=== PATIENT | female | born 1990 | race Caucasian/White ===

== ENCOUNTER 2017-03-14 16:57 | Emergency (ER) | payer BC ==
[2017-03-14] MEDS ORDERED: SODIUM CHLORIDE 0.9% 500 ML IV ONE (18:09)
[2017-03-14] MEDS ORDERED: ONDANSETRON 4 MG/2 ML VIAL IVP STA (18:09)
--- NOTE | 2017-03-14 18:14 | ED ---
Female Urogenital HPI - General Chief complaint: Vaginal Bleeding Stated complaint: Vaginal Bleeding Time Seen by Provider: 03/14/17 17:54 Source: patient, RN notes reviewed, old records reviewed Mode of arrival: ambulatory Limitations: no limitations - History of Present Illness Initial comments: 26-year-old female presents emergency Department chief complaint of prolonged vaginal bleeding. Patient reports that she's been having vaginal bleeding for the past 20 days. She states that prior to the vaginal bleeding she took a urine test which was faintly positive, she went to her primary care doctor and has a blood work, which showed a negative test, and that following day she started to have vaginal bleeding. She reports that She has had one living child and one . Patient reports that her ATHLETIC MONITOR is Dr. Lipscomb. She reports she's been having some lower pelvic pain and cramping. Patient denies any fever or chills, chest pain, shortness of breath. Last Menstrual Period: 01/14/17 - Related Data Home Medications Medication Instructions Recorded Confirmed Ibuprofen [Motrin] 400 mg PO Q6HR PRN 03/14/17 03/14/17 Pnv,Calcium 72/Iron/Folic Acid 1 tab PO HS 03/14/17 03/14/17 [ Plus Tablet] Allergies Allergy/AdvReac Type Severity Reaction Status Date / Time No Known Allergies Allergy Verified 03/14/17 17:57 Review of Systems ROS Statement: Those systems with pertinent positive or pertinent negative responses have been documented in the HPI. ROS Other: All systems not noted in ROS Statement are negative. Past Medical History Past Medical History: No Reported History Additional Past Medical History / Comment(s): EXERCISE INDUCED ASTHMA, IBS, GALLSTONES, INTERMITTENT ABD PAIN, INTERMITTENT BLOOD WITH STOOLS, POLYCYSTIC OVARIAN SYNDROME. History of Any Multi-Drug Resistant Organisms: None Reported Past Surgical History: Ear Surgery, Tonsillectomy Additional Past Surgical History / Comment(s): COLONOSCOPY, WISDOM TEETH REMOVEAL, TUBES GALINDO EARS X2 Past Anesthesia/Blood Transfusion Reactions: No Reported Reaction Past Psychological History: Depression Smoking Status: Never smoker Past Alcohol Use History: None Reported Past Drug Use History: None Reported - Past Family History Father Family Medical History: Hypertension, Prostate Disorder General Exam - General Exam Comments Initial Comments: 26-year-old female. No acute distress. General: Well appearing, well nourished, in no distress. Oriented x 3, normal mood and affect . Ambulating without difficulty. Skin: Good turgor, no rash, unusual bruising or prominent lesions Hair: Normal texture and distribution. HEENT: Head: Normocephalic, atraumatic, no visible or palpable masses, depressions, or scaring. Eyes: Visual acuity intact, conjunctiva clear, sclera non-icteric, EOM intact, PERRL. Ears: EACs clear, TMs translucent & cone of light visualized. hearing intact. Pharynx: Mucosa non-inflamed, no tonsillar hypertrophy or exudate Neck: Supple, without lesions, bruits, or adenopathy, thyroid non-enlarged and non-tender Heart: No cardiomegaly or thrills; regular rate and rhythm, no murmur or gallop Lungs: Clear to auscultation and percussion Abdomen: Bowel sounds normal, no tenderness, organomegaly, masses, or hernia Back: Spine normal without deformity or tenderness, no CVA tenderness Extremities: No amputations or deformities, cyanosis, edema or varicosities, peripheral pulses intact Musculoskeletal: Normal gait and station. No misalignment, asymmetry, crepitation, defects, tenderness, masses, effusions, decreased range of motion in the head, neck, spine, ribs, pelvis or extremities. Neurologic: CN 2-12 normal. Sensation to pain, touch, and proprioception normal. DTRs normal in upper and lower extremities. No pathologic reflexes. Psychiatric: Oriented X3, intact recent and remote memory, judgment and insight , normal mood and affect. Pelvic: Vagina and cervix without lesions. Uterus and adnexa/parametria nontender without masses. Patient does have vaginal bleeding. Cervix appears closed. Limitations: no limitations Course Vital Signs 03/14/17 03/14/17 03/14/17 17:12 18:39 19:33 Temperature 98.6 F 98.5 F Pulse Rate 110 H 100 100 Respiratory 18 16 17 Rate Blood Pressure 123/81 141/78 124/66 O2 Sat by Pulse 98 97 96 Oximetry 03/14/17 20:16 Temperature 98.7 F Pulse Rate 99 Respiratory 18 Rate Blood Pressure 132/65 O2 Sat by Pulse 98 Oximetry Medical Decision Making - Medical Decision Making 26-year-old female presents emergency Department chief complaint of increased vaginal bleeding for 20 days. She had a faint positive test personally 3 weeks ago. She had a negative blood test on the same day that the menstrual bleeding started. At this time patient's hemoglobin is stable, her hCG serum is less than 2.4, urine hCG is negative. Urinalysis is negative for any signs of infection. Ultrasound does show positive left sided ovarian cyst. No other uterine abnormalities. Discussed the patient with his menorrhagia, she needs to follow-up with her ATHLETIC MONITOR. Patient was having appointment with her ATHLETIC MONITOR, Dr. Davey March 27. Discussed that she has any symptoms like shortness of breath, lightheadedness or dizziness patient should return to emergency department for further evaluation. Discussed close follow-up with her primary care provider in the interim this before seeing her ATHLETIC MONITOR trying to see her ATHLETIC MONITOR sooner. Patient understands treatment plan will comply. Return parameters were discussed. - Lab Data Result diagrams: 03/14/17 18:22 03/14/17 18:22 Lab Results 03/14/17 03/14/17 03/14/17 Range/Units 18:22 18:22 18:22 WBC 4.9 (3.8-10.6) k/uL RBC 4.73 (3.80-5.40) m/uL Hgb 14.1 (11.4-16.0) gm/dL Hct 42.3 (34.0-46.0) % MCV 89.5 (80.0-100.0) fL MCH 29.7 (25.0-35.0) pg MCHC 33.2 (31.0-37.0) g/dL RDW 12.4 (11.5-15.5) % Plt Count 204 (150-450) k/uL Neutrophils % 52 % Lymphocytes % 33 % Monocytes % 5 % Eosinophils % 5 % Basophils % 1 % Neutrophils # 2.5 (1.3-7.7) k/uL Lymphocytes # 1.6 (1.0-4.8) k/uL Monocytes # 0.3 (0-1.0) k/uL Eosinophils # 0.3 (0-0.7) k/uL Basophils # 0.0 (0-0.2) k/uL PT (9.0-12.0) sec INR (<1.2) APTT (22.0-30.0) sec Sodium 139 (137-145) mmol/L Potassium 3.8 (3.5-5.1) mmol/L Chloride 104 (98-107) mmol/L Carbon Dioxide 23 (22-30) mmol/L Anion Gap 12 mmol/L BUN 8 (7-17) mg/dL Creatinine 0.72 (0.52-1.04) mg/dL Est GFR (MDRD) Af Amer >60 (>60 ml/min/1.73 sqM) Est GFR (MDRD) Non-Af >60 (>60 ml/min/1.73 sqM) Glucose 79 (74-99) mg/dL Calcium 9.1 (8.4-10.2) mg/dL Total Bilirubin 0.4 (0.2-1.3) mg/dL AST 62 H (14-36) U/L ALT 63 H (9-52) U/L Alkaline Phosphatase 71 (38-126) U/L Total Protein 7.2 (6.3-8.2) g/dL Albumin 4.5 (3.5-5.0) g/dL HCG, Quant <2.4 mIU/mL Urine HCG, Qual Not Detected (Not Detectd) Trichomonas Ag (Rapid) (Negative) Blood Type Blood Type Recheck Antibody Screen Spec Expiration Date 03/14/17 03/14/17 03/14/17 Range/Units 18:22 18:22 18:22 WBC (3.8-10.6) k/uL RBC (3.80-5.40) m/uL Hgb (11.4-16.0) gm/dL Hct (34.0-46.0) % MCV (80.0-100.0) fL MCH (25.0-35.0) pg MCHC (31.0-37.0) g/dL RDW (11.5-15.5) % Plt Count (150-450) k/uL Neutrophils % % Lymphocytes % % Monocytes % % Eosinophils % % Basophils % % Neutrophils # (1.3-7.7) k/uL Lymphocytes # (1.0-4.8) k/uL Monocytes # (0-1.0) k/uL Eosinophils # (0-0.7) k/uL Basophils # (0-0.2) k/uL PT 10.1 (9.0-12.0) sec INR 1.0 (<1.2) APTT 23.9 (22.0-30.0) sec Sodium (137-145) mmol/L Potassium (3.5-5.1) mmol/L Chloride (98-107) mmol/L Carbon Dioxide (22-30) mmol/L Anion Gap mmol/L BUN (7-17) mg/dL Creatinine (0.52-1.04) mg/dL Est GFR (MDRD) Af Amer (>60 ml/min/1.73 sqM) Est GFR (MDRD) Non-Af (>60 ml/min/1.73 sqM) Glucose (74-99) mg/dL Calcium (8.4-10.2) mg/dL Total Bilirubin (0.2-1.3) mg/dL AST (14-36) U/L ALT (9-52) U/L Alkaline Phosphatase (38-126) U/L Total Protein (6.3-8.2) g/dL Albumin (3.5-5.0) g/dL HCG, Quant mIU/mL Urine HCG, Qual (Not Detectd) Trichomonas Ag (Rapid) Negative (Negative) Blood Type O Positive Blood Type Recheck No Antibody Screen NEGATIVE Spec Expiration Date 03/17/2017 - 2321 - Radiology Data Radiology results: report reviewed Transvaginal ultrasound shows a large left ovarian cyst, no evidence of ovarian torsion, normal endometrium. The endometrial cyst measures approximately 3.9 x 2.4 x 3.1 cm. Disposition Clinical Impression: Menorrhagia with irregular cycle Disposition: HOME SELF-CARE Condition: Good Instructions: Menorrhagia (ED) Additional Instructions: Advised to a follow-up with ATHLETIC MONITOR and primary care provider. Patient should return to emergency department if any alarming signs or symptoms occur. Referrals: Ld Wan MD [Primary Care Provider] - 1-2 days Litzy Colón MD [STAFF PHYSICIAN] - 1-2 days Time of Disposition: 20:08
[2017-03-14 19:23] LABS: Basophils % (A) 1 %; CH 30.4; CHCM 34.2; Eosinophils # (A) 0.3 k/uL (0-0.7); Eosinophils % (A) 5 %; HCT 42.3 % (34.0-46.0); HDW 2.71; HGB 14.1 gm/dL (11.4-16.0); Luc # (Auto) 0.18; Luc % (Auto) 4; Lymphocytes # (A) 1.6 k/uL (1.0-4.8); Lymphocytes % (A) 33 %; MCH 29.7 pg (25.0-35.0); MCHC 33.2 g/dL (31.0-37.0); MCV 89.5 fL (80.0-100.0); Mean Platelet Volume 7.3; Monocytes # (A) 0.3 k/uL (0-1.0); Monocytes % (A) 5 %; Neutrophils # (A) 2.5 k/uL (1.3-7.7); Neutrophils % (A) 52 %; RBC 4.73 m/uL (3.80-5.40); RDW 12.4 % (11.5-15.5); WBC 4.9 k/uL (3.8-10.6)
--- NOTE | 2017-03-14 19:23 | US ---
EXAMINATION TYPE: US transvaginal DATE OF EXAM: 03/14/2017 COMPARISON: NONE CLINICAL HISTORY: Pain. Bleeding since 02/22/2017 TECHNIQUE: Transvaginal (TV) Date of LMP: 02/22/2017 EXAM MEASUREMENTS: Uterus: 6.8 x 5.6 x 5.1 cm Endometrial Stripe: 0.4 cm Right Ovary: 2.8 x 1.4 x 2.8 cm Left Ovary: 4.5 x 2.3 x 3.4 cm Fluid visualized in cervical canal anechoic area with internal echoes left ovary measuring 3.9 x 2.4 x 3.1cm 1. Uterus: Retroverted 2. Endometrium: appears wnl 3. Right Ovary: follicles visualized 4. Left Ovary: anechoic area with internal echoes measuring 3.9 x 2.4 x 3.1cm Spectral, color and waveform doppler imaging shows good arterial and venous flow within the ovaries ; there is no evidence for ovarian torsion. 5. Bilateral Adnexa: wnl 6. Posterior cul-de-sac: wnl IMPRESSION: Large left ovarian cyst. No evidence of ovarian torsion. Normal endometrium.
[2017-03-14 19:26] LABS: Partial Thromboplastin Time 23.9 sec (22.0-30.0); Prothrombin Time 10.1 sec (9.0-12.0)
[2017-03-14 19:28] LABS: ALT 63 U/L (9-52); AST 62 U/L (14-36); Alkaline Phosphatase 71 U/L (38-126); Anion Gap 12 mmol/L; Blood Urea Nitrogen 8 mg/dL (7-17); Calcium 9.1 mg/dL (8.4-10.2); Carbon Dioxide 23 mmol/L (22-30); Chloride 104 mmol/L (98-107); Glucose 79 mg/dL (74-99); Non-African American GFR(MDRD) >60 (>60 ml/min/1.73 sqM); Potassium 3.8 mmol/L (3.5-5.1); Sodium 139 mmol/L (137-145); Total Bilirubin 0.4 mg/dL (0.2-1.3); Total Protein 7.2 g/dL (6.3-8.2)
[2017-03-14 20:17] VITALS: BP 132/65; PULSE 99; RESP 18; TEMP 98.7
== END 2017-03-14 20:29 | disposition home or self-care (01) ==
LOC: EC 16:57
DX: N92.1 Excessive and frequent menstruation with irregular cycle (principal); N83.202 Unspecified ovarian cyst, left side; Z32.02 Encounter for pregnancy test, result negative; Z79.899 Other long term (current) drug therapy
CPT/HCPCS: 36415; 86900; 86901; 80053; 87591; 87491; 85025; 85610; 85730; 86850; 81025; 84702; 87808; 87070; 87205; 93975; 76830; 99284; 96374; 96361 ×2; J2405

== ENCOUNTER 2017-04-30 16:51 | Emergency (ER) | payer BC ==
[2017-04-30] MEDS ORDERED: ACETAMINOPHEN TAB 325 MG TAB PO STA (17:02)
--- NOTE | 2017-04-30 18:10 | ED ---
General Adult HPI - General Chief complaint: ENT Stated complaint: ENT, Fever Time Seen by Provider: 04/30/17 16:57 Source: patient Mode of arrival: ambulatory Limitations: no limitations - History of Present Illness Initial comments: 27 year-old female patient presents to the emergency department today for evaluation of nasal congestion, sore throat, and fevers. Patient states that symptoms started on Saturday. States that her sore throat has improved somewhat however her nasal congestion is persistent. She states that she is unable to breathe through her nose at all. States she does have a mild cough occasionally but feels it is more due to throat irritation. She states she is been taking Tylenol Cold and sinus without much relief of symptoms. She is unsure how high her fevers have been. She states she is eating and drinking without difficulty. She denies any vomiting or diarrhea. Patient denies any recent rash, shortness breath, chest pain, abdominal pain, constipation, back pain, numbness, tingling, dizziness, weakness, hematuria, dysuria, urinary urgency, urinary frequency, headache, visual changes, or any other complaints. - Related Data Home Medications Medication Instructions Recorded Confirmed No Known Home Medications [No 04/30/17 04/30/17 Known Home Medications] Allergies Allergy/AdvReac Type Severity Reaction Status Date / Time No Known Allergies Allergy Verified 04/30/17 16:58 Review of Systems ROS Statement: Those systems with pertinent positive or pertinent negative responses have been documented in the HPI. ROS Other: All systems not noted in ROS Statement are negative. Past Medical History Past Medical History: No Reported History Additional Past Medical History / Comment(s): EXERCISE INDUCED ASTHMA, IBS, GALLSTONES, INTERMITTENT ABD PAIN, INTERMITTENT BLOOD WITH STOOLS, POLYCYSTIC OVARIAN SYNDROME. History of Any Multi-Drug Resistant Organisms: None Reported Past Surgical History: Ear Surgery, Tonsillectomy Additional Past Surgical History / Comment(s): COLONOSCOPY, WISDOM TEETH REMOVEAL, TUBES GALINDO EARS X2 Past Anesthesia/Blood Transfusion Reactions: No Reported Reaction Past Psychological History: Depression Smoking Status: Never smoker Past Alcohol Use History: None Reported Past Drug Use History: None Reported - Past Family History Father Family Medical History: Hypertension, Prostate Disorder General Exam Limitations: no limitations General appearance: alert, in no apparent distress, other (This is a well- developed, well-nourished adult female patient in no acute distress. Vital signs upon presentation are temperature 100.5F, pulse 120, respirations 20, blood pressure 124/78, pulse ox 98% on room air.) Eye exam: Present: normal appearance, PERRL, EOMI. Absent: scleral icterus, conjunctival injection, periorbital swelling ENT exam: Present: normal exam, mucous membranes moist, TM's normal bilaterally , other (Patient does have chapping around the nostrils). Absent: normal oropharynx (Pharyngeal erythema, no tonsillar hypertrophy, no tonsillar exudate) Neck exam: Present: normal inspection. Absent: tenderness, meningismus, lymphadenopathy Respiratory exam: Present: normal lung sounds bilaterally. Absent: respiratory distress, wheezes, rales, rhonchi, stridor Cardiovascular Exam: Present: regular rate, normal rhythm, normal heart sounds. Absent: systolic murmur, diastolic murmur, rubs, gallop, clicks GI/Abdominal exam: Present: soft, normal bowel sounds. Absent: distended, tenderness, guarding, rebound, rigid Neurological exam: Present: alert, oriented X3, CN II-XII intact Psychiatric exam: Present: normal affect, normal mood Skin exam: Present: warm, dry, intact, normal color. Absent: rash Course Vital Signs 04/30/17 04/30/17 16:56 18:14 Temperature 100.5 F H 98.6 F Pulse Rate 120 H 98 Respiratory 20 18 Rate Blood Pressure 124/78 131/78 O2 Sat by Pulse 98 98 Oximetry Medical Decision Making - Medical Decision Making 27 year-old male patient presented to the emergency department today for evaluation of nasal congestion, sore throat, and fevers 4 days. Physical examination did reveal some chapping around the nostrils and pharyngeal erythema. Patient had no tonsillar exudate or lymphadenopathy. Lungs are clear to auscultation with good air movement. Influenza and strep testing were negative. I did discuss findings with patient and informed her she most likely has a viral upper respiratory infection. She is educated regarding symptom management. She is instructed to obtain [id number] nasal decongestants. She is instructed to follow-up with her primary care physician for recheck in 1- 2 days. She is instructed to return here immediately for any new, worsening, or concerning symptoms. She verbalizes understanding and agrees with this plan. - Lab Data Lab Results 01/16/18 01/16/18 Range/Units 17:11 17:11 Influenza Type A RNA Not Detected (Not Detectd) Influenza Type B (PCR) Not Detected (Not Detectd) Group A Strep Rapid Negative (Negative) Disposition Clinical Impression: Viral upper respiratory illness Disposition: HOME SELF-CARE Condition: Good Instructions: Upper Respiratory Infection (ED) Additional Instructions: Drink lots of fluids. Gargle with warm salt water and drink warm teas to help soothe your throat. Use [id number] nasal decongestants like a Claritin-D , Zyrtec-D, or Sudafed. Follow-up with her primary care physician for recheck in 1-2 days. Return here immediately for any new, worsening, or concerning symptoms. Referrals: Ld Wan MD [Primary Care Provider] - 1-2 days Time of Disposition: 18:10
[2017-04-30 18:15] VITALS: BP 131/78; PULSE 98; RESP 18; TEMP 98.6
== END 2017-04-30 18:15 | disposition home or self-care (01) ==
LOC: EC 16:51
DX: J06.9 Acute upper respiratory infection, unspecified (principal)
CPT/HCPCS: 87081; 87430; 87502; 99283

== ENCOUNTER → 2017-08-22 | Outpatient (CLI) | payer OTHER ==
[2017-08-22 10:21] LABS: HCT 39.9 % (34.0-46.0); HGB 13.9 gm/dL (11.4-16.0); MCH 30.4 pg (25.0-35.0); MCHC 34.9 g/dL (31.0-37.0); MCV 87.1 fL (80.0-100.0); Mean Platelet Volume 6.8; Platelet Count 198 k/uL (150-450); RBC 4.58 m/uL (3.80-5.40); RDW 12.8 % (11.5-15.5); WBC 6.5 k/uL (3.8-10.6)
[2017-08-22 10:35] LABS: ALT 25 U/L (9-52); AST 23 U/L (14-36); Albumin 4.3 g/dL (3.5-5.0); Alkaline Phosphatase 65 U/L (38-126); Anion Gap 13 mmol/L; Blood Urea Nitrogen 11 mg/dL (7-17); Calcium 9.3 mg/dL (8.4-10.2); Carbon Dioxide 25 mmol/L (22-30); Chloride 105 mmol/L (98-107); Cholesterol 158 mg/dL (<200); Glucose 90 mg/dL (74-99); HDL Cholesterol 50 mg/dL (40-60); LDL Cholesterol,Calculated 37 mg/dL (0-99); Potassium 4.7 mmol/L (3.5-5.1); Sodium 143 mmol/L (137-145); Total Bilirubin 0.5 mg/dL (0.2-1.3); Total Protein 6.7 g/dL (6.3-8.2); Triglycerides 357 mg/dL (<150)
== END | disposition home or self-care (01) ==
LOC: LABWHC1 09:20
PROVIDERS: ATTEND Family Medicine
DX: R63.5 Abnormal weight gain (principal); E28.2 Polycystic ovarian syndrome
CPT/HCPCS: 36415; 80053; 80061; 82306; 82533; 84443; 84481; 85027

== ENCOUNTER → 2017-11-05 | Outpatient (CLI) | payer OTHER ==
[2017-11-05 16:06] LABS: DHEA Sulfate 252.7 ug/dL (26.0-430.0)
== END | disposition home or self-care (01) ==
LOC: LABWHC1 09:01
PROVIDERS: ATTEND Family Medicine
DX: E28.2 Polycystic ovarian syndrome (principal); N92.6 Irregular menstruation, unspecified; L68.0 Hirsutism; E66.9 Obesity, unspecified
CPT/HCPCS: 36415; 82627; 83001; 83002; 84402; 84403

== ENCOUNTER → 2018-01-02 | Outpatient (CLI) | payer OTHER | END | disposition home or self-care (01) | LOC: LABWHC1 13:28 | PROVIDERS: ATTEND Obstetrics & Gynecology | DX: O20.0 Threatened abortion (principal); Z3A.00 Weeks of gestation of pregnancy not specified | CPT/HCPCS: 36415; 84702 ==

== ENCOUNTER → 2018-01-04 | Outpatient (CLI) | payer OTHER | END | disposition home or self-care (01) | LOC: LABWHC1 11:26 | PROVIDERS: ATTEND Obstetrics & Gynecology | DX: O20.0 Threatened abortion (principal) | CPT/HCPCS: 36415; 84702 ==

== ENCOUNTER 2018-03-28 12:21 | Emergency (ER) | payer OTHER ==
[2018-03-28 12:32] VITALS: RESP 18
[2018-03-28] MEDS ORDERED: SODIUM CHLORIDE 0.9% 1,000 ML IV STA (12:51)
--- NOTE | 2018-03-28 13:00 | ED ---
General Adult HPI - General Chief complaint: Abdominal Pain Stated complaint: Abd Pain-19 wks Time Seen by Provider: 03/28/18 12:36 Source: patient, RN notes reviewed Mode of arrival: ambulatory - History of Present Illness Initial comments: Patient 27-year-old female presented to the emergency room today with chief complaint of lower pelvis pain over the last month. She admits that she is 18 weeks . She states she has been waiting to follow-up the [facility]. Patient does admit that she has not had any bleeding or discharge. 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 She denies any other complaints or symptoms at this time. She states she's been using Tylenol with some relief. Patient denies any recent fever, chills, shortness of breath, chest pain, back pain, nausea or vomiting, numbness or tingling, dysuria or hematuria, constipation or diarrhea, headaches or visual changes, or any other complaints. - Related Data Home Medications Medication Instructions Recorded Confirmed Acetaminophen [Tylenol] 325 mg PO Q8H 03/28/18 03/28/18 Folic Acid 1 mg PO DAILY 03/28/18 03/28/18 [id number] Acid 1 cap PO DAILY 03/28/18 03/28/18 [-U Capsule (formulary)] buPROPion XL [Wellbutrin XL] 150 mg PO DAILY 03/28/18 03/28/18 metFORMIN HCL [Glucophage] 500 mg PO DAILY 03/28/18 03/28/18 Allergies Allergy/AdvReac Type Severity Reaction Status Date / Time No Known Allergies Allergy Verified 03/28/18 13:10 Review of Systems ROS Statement: Those systems with pertinent positive or pertinent negative responses have been documented in the HPI. ROS Other: All systems not noted in ROS Statement are negative. Past Medical History Past Medical History: No Reported History Additional Past Medical History / Comment(s): EXERCISE INDUCED ASTHMA, IBS, GALLSTONES, INTERMITTENT ABD PAIN, INTERMITTENT BLOOD WITH STOOLS, POLYCYSTIC OVARIAN SYNDROME. History of Any Multi-Drug Resistant Organisms: None Reported Past Surgical History: Cholecystectomy, Ear Surgery, Tonsillectomy Additional Past Surgical History / Comment(s): COLONOSCOPY, WISDOM TEETH REMOVEAL, TUBES GALINDO EARS X2 Past Anesthesia/Blood Transfusion Reactions: No Reported Reaction Past Psychological History: Depression Smoking Status: Never smoker Past Alcohol Use History: None Reported Past Drug Use History: None Reported - Past Family History Father Family Medical History: Hypertension, Prostate Disorder General Exam - General Exam Comments Initial Comments: \General: The patient is awake and alert, in no distress, and does not appear acutely ill. Eye: Pupils are equal, round and reactive to light, extra-ocular movements are intact. No nystagmus. There is normal conjunctiva bilaterally. No signs of icterus. Ears, nose, mouth and throat: There are moist mucous membranes and no oral lesions. Neck: The neck is supple, there is no tenderness or JVD. Cardiovascular: There is a regular rate and rhythm. No murmur, rub or gallop is appreciated. Respiratory: Lungs are clear to auscultation, respirations are non-labored, breath sounds are equal. No wheezes, stridor, rales, or rhonchi. Gastrointestinal: Admits soft on palpation. Mild tenderness both left and right lower quadrants. No rebound, guarding or CVA tenderness. Musculoskeletal: Normal ROM, no tenderness. Strength 5/5. Sensation intact. Pulses equal bilaterally 2+. Neurological: A&O x 3. CN II-XII intact, There are no obvious motor or sensory deficits. Coordination appears grossly intact. Speech is normal. Skin: Skin is warm and dry and no rashes or lesions are noted. Psychiatric: Cooperative, appropriate mood & affect, normal judgment. Course Vital Signs 03/28/18 12:29 Temperature 98.1 F Pulse Rate 91 Respiratory 18 Rate Blood Pressure 112/76 O2 Sat by Pulse 98 Oximetry Medical Decision Making - Medical Decision Making Patient 27-year-old female presenting for increased lower abdominal pain. 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 Patient states that the pain has been worse with movement. She states she's tried to follow-up with her OB/ [employer]. Patient denies any vaginal bleeding or discharge. heart tones were obtained here in the emergency room and rhythm 150s. Patient labs been reviewed. No sign of infection. Vitals are stable. Patient's pain reproducible with movement here in the emergency room and does appear to be musculoskeletal. Was discussed with patient about ultrasound she has had a previous ultrasound in this one month ago. She declined ultrasound today stating that they were able to find heart tones. Patient has been taking Tylenol. Was offered Tylenol here the emergency room if she has declined currently. She states she will wait until she gets home. At this time patient will be discharged home to follow-up with the [facility]. There is advised return if any symptoms increase or worsen or fail concerns. - Lab Data Result diagrams: 03/28/18 12:53 03/28/18 12:53 Lab Results 03/28/18 03/28/18 03/28/18 Range/Units 12:53 12:53 12:53 WBC 8.7 (3.8-10.6) k/uL RBC 3.90 (3.80-5.40) m/uL Hgb 12.3 (11.4-16.0) gm/dL Hct 35.2 (34.0-46.0) % MCV 90.2 (80.0-100.0) fL MCH 31.4 (25.0-35.0) pg MCHC 34.9 (31.0-37.0) g/dL RDW 13.4 (11.5-15.5) % Plt Count 175 (150-450) k/uL Neutrophils % 75 % Lymphocytes % 18 % Monocytes % 3 % Eosinophils % 2 % Basophils % 0 % Neutrophils # 6.5 (1.3-7.7) k/uL Lymphocytes # 1.5 (1.0-4.8) k/uL Monocytes # 0.3 (0-1.0) k/uL Eosinophils # 0.2 (0-0.7) k/uL Basophils # 0.0 (0-0.2) k/uL Sodium 136 L (137-145) mmol/L Potassium 4.3 (3.5-5.1) mmol/L Chloride 107 (98-107) mmol/L Carbon Dioxide 20 L (22-30) mmol/L Anion Gap 9 mmol/L BUN 6 L (7-17) mg/dL Creatinine 0.60 (0.52-1.04) mg/dL Est GFR (CKD-EPI)AfAm >90 (>60 ml/min/1.73 sqM) Est GFR (CKD-EPI)NonAf >90 (>60 ml/min/1.73 sqM) Glucose 85 (74-99) mg/dL Calcium 9.3 (8.4-10.2) mg/dL Total Bilirubin 0.5 (0.2-1.3) mg/dL AST 17 (14-36) U/L ALT 34 (9-52) U/L Alkaline Phosphatase 45 (38-126) U/L Total Protein 6.1 L (6.3-8.2) g/dL Albumin 3.6 (3.5-5.0) g/dL Amylase 56 (30-110) U/L Lipase 72 (23-300) U/L Urine Color Yellow Urine Appearance Cloudy H (Clear) Urine pH 5.5 (5.0-8.0) Ur Specific [place] 1.015 (1.001-1.035) Urine Protein Negative (Negative) Urine Glucose (UA) Negative (Negative) Urine Ketones Negative (Negative) Urine Blood Negative (Negative) Urine Nitrite Negative (Negative) Urine Bilirubin Negative (Negative) Urine Urobilinogen <2.0 (<2.0) mg/dL Ur Leukocyte Esterase Small H (Negative) Urine RBC 11 H (0-5) /hpf Urine WBC 3 (0-5) /hpf Ur Squamous Epith Cells 3 (0-4) /hpf Urine Bacteria Occasional H (None) /hpf Urine Mucus Rare H (None) /hpf Disposition Clinical Impression: Abdominal pain in Disposition: HOME SELF-CARE Condition: Good Instructions: Abdominal Pain in (ED) Additional Instructions: Result the [facility] as discussed. Please use Tylenol for pain. Please return here to emergency room if any symptoms increase or worsen or for any other concerns. Is patient prescribed a controlled substance at d/c from ED?: No Referrals: None,Stated [Primary Care Provider] - 1-2 days Litzy Colón MD [STAFF PHYSICIAN] - 1-2 days Time of Disposition: 14:32
[2018-03-28 13:09] LABS: Basophils % (A) 0 %; Eosinophils # (A) 0.2 k/uL (0-0.7); Eosinophils % (A) 2 %; HCT 35.2 % (34.0-46.0); HGB 12.3 gm/dL (11.4-16.0); Lymphocytes # (A) 1.5 k/uL (1.0-4.8); Lymphocytes % (A) 18 %; MCH 31.4 pg (25.0-35.0); MCHC 34.9 g/dL (31.0-37.0); MCV 90.2 fL (80.0-100.0); Mean Platelet Volume 7.6; Monocytes # (A) 0.3 k/uL (0-1.0); Monocytes % (A) 3 %; Neutrophils # (A) 6.5 k/uL (1.3-7.7); Neutrophils % (A) 75 %; Platelet Count 175 k/uL (150-450); RDW 13.4 % (11.5-15.5); WBC 8.7 k/uL (3.8-10.6)
[2018-03-28 13:19] LABS: ALT 34 U/L (9-52); AST 17 U/L (14-36); Albumin 3.6 g/dL (3.5-5.0); Alkaline Phosphatase 45 U/L (38-126); Amylase 56 U/L (30-110); Anion Gap 9 mmol/L; Blood Urea Nitrogen 6 mg/dL (7-17); Calcium 9.3 mg/dL (8.4-10.2); Carbon Dioxide 20 mmol/L (22-30); Chloride 107 mmol/L (98-107); Glucose 85 mg/dL (74-99); Lipase 72 U/L (23-300); Potassium 4.3 mmol/L (3.5-5.1); Sodium 136 mmol/L (137-145); Total Bilirubin 0.5 mg/dL (0.2-1.3); Total Protein 6.1 g/dL (6.3-8.2)
[2018-03-28 13:37] LABS: Appearance,Urine Cloudy (Clear); Bacteria,Urine Occasional /hpf; Bilirubin,Urine Negative (Negative); Blood,Urine Negative (Negative); Color,Urine Yellow; Glucose,Urine (UA) Negative (Negative); Ketones,Urine Negative (Negative); Leukocyte Esterase,Urine Small (Negative); Mucus,Urine Rare /hpf; Nitrite,Urine Negative (Negative); PH, Urine 5.5 (5.0-8.0); Protein,Urine Negative (Negative); RBC,Urine 11 /hpf (0-5); Specific Gravity,Urine 1.015 (1.001-1.035); Squamous Epithelial Cell,Urine 3 /hpf (0-4); Urobilinogen,Urine <2.0 mg/dL (<2.0)
[2018-03-28 14:45] VITALS: BP 137/73; PULSE 94; TEMP 98.5
== END 2018-03-28 14:46 | disposition home or self-care (01) ==
LOC: EC 12:21
DX: O26.892 Other specified pregnancy related conditions, second trimester (principal); R10.9 Unspecified abdominal pain; O99.342 Other mental disorders complicating pregnancy, second trimester; F32.9 Major depressive disorder, single episode, unspecified; Z3A.19 19 weeks gestation of pregnancy; Z79.84 Long term (current) use of oral hypoglycemic drugs; Z79.899 Other long term (current) drug therapy
CPT/HCPCS: 36415; 80053; 81001; 82150; 83690; 85025; 96360; 96361; 99284

== ENCOUNTER 2018-04-18 14:14 | Emergency (ER) | payer OTHER ==
[2018-04-18 14:21] VITALS: BP 126/74; PULSE 110; RESP 18; TEMP 98
[2018-04-18] MEDS ORDERED: ONDANSETRON ODT 4 MG TAB PO STA (14:57)
--- NOTE | 2018-04-18 15:18 | XR ---
EXAMINATION TYPE: XR chest 2V DATE OF EXAM: 04/18/2018 COMPARISON: 04/07/2013 INDICATION: Cough, pain TECHNIQUE: Frontal and lateral views of the chest are obtained. Patient was carefully shielded for t he exam. FINDINGS: The heart size is normal. The pulmonary vasculature is normal. The lungs are clear. IMPRESSION: 1. No acute pulmonary process.
[2018-04-18] MEDS ORDERED: cefTRIAXone 1,000 MG VIAL (IM USE) IM STA (15:22)
--- NOTE | 2018-04-18 15:22 | ED ---
ENT HPI - General Chief complaint: ENT Stated complaint: Face pain, poss sinus infection. 21 Weeks preg Time Seen by Provider: 04/18/18 14:33 Source: patient, RN notes reviewed Mode of arrival: ambulatory Limitations: no limitations - History of Present Illness Initial comments: 27 year old female presents emergency department to complaint of right upper dental pain. Patient states that the cough and chest congestion. Patient states she's had associated nausea secondary to and cold. Patient states that she vomited today. Patient has no abdominal complaints including vaginal bleeding or vaginal discharge. Patient is 21 weeks . Patient is currently on antibiotics. Patient denies any dysuria hematuria states that she has known fillings in the right upper. No sore throat no difficulty swallowing. - Related Data Home Medications Medication Instructions Recorded Confirmed Acetaminophen [Tylenol] 325 mg PO Q8H 03/28/18 03/28/18 Folic Acid 1 mg PO DAILY 03/28/18 03/28/18 Rnw-Mqmo-Cwmag Acid 1 cap PO DAILY 03/28/18 03/28/18 [-U Capsule (formulary)] buPROPion XL [Wellbutrin XL] 150 mg PO DAILY 03/28/18 03/28/18 metFORMIN HCL [Glucophage] 500 mg PO DAILY 03/28/18 03/28/18 Allergies Allergy/AdvReac Type Severity Reaction Status Date / Time No Known Allergies Allergy Verified 04/18/18 14:21 Review of Systems ROS Statement: Those systems with pertinent positive or pertinent negative responses have been documented in the HPI. ROS Other: All systems not noted in ROS Statement are negative. Past Medical History Past Medical History: No Reported History Additional Past Medical History / Comment(s): EXERCISE INDUCED ASTHMA, IBS, GALLSTONES, INTERMITTENT ABD PAIN, INTERMITTENT BLOOD WITH STOOLS, POLYCYSTIC OVARIAN SYNDROME. History of Any Multi-Drug Resistant Organisms: None Reported Past Surgical History: Cholecystectomy, Ear Surgery, Tonsillectomy Additional Past Surgical History / Comment(s): COLONOSCOPY, WISDOM TEETH REMOVEAL, TUBES GALINDO EARS X2 Past Anesthesia/Blood Transfusion Reactions: No Reported Reaction Past Psychological History: Depression Smoking Status: Never smoker Past Alcohol Use History: None Reported Past Drug Use History: None Reported - Past Family History Father Family Medical History: Hypertension, Prostate Disorder General Exam Limitations: no limitations General appearance: alert, in no apparent distress Head exam: Present: atraumatic, normocephalic, normal inspection Eye exam: Present: normal appearance, PERRL, EOMI. Absent: scleral icterus, conjunctival injection, periorbital swelling ENT exam: Present: normal oropharynx, mucous membranes moist, TM's normal bilaterally, normal external ear exam. Absent: normal exam (Dental caries right upper, no drainable abscess) Neck exam: Present: normal inspection, full ROM. Absent: tenderness, meningismus, lymphadenopathy Respiratory exam: Present: normal lung sounds bilaterally. Absent: respiratory distress, wheezes, rales, rhonchi, stridor Cardiovascular Exam: Present: regular rate, normal rhythm, normal heart sounds. Absent: systolic murmur, diastolic murmur, rubs, gallop, clicks GI/Abdominal exam: Present: soft, normal bowel sounds. Absent: distended, tenderness, guarding, rebound, rigid Course Vital Signs 04/18/18 14:18 Temperature 98.0 F Pulse Rate 110 H Respiratory 18 Rate Blood Pressure 126/74 O2 Sat by Pulse 97 Oximetry Medical Decision Making - Medical Decision Making 27 show female presented for cold like symptoms, dental pain. Patient will be given a shot of Rocephin, continued on amoxicillin. She is advised follow up with a dentist. Patient will continue Tylenol as directed and return for any worsening symptoms. Disposition Clinical Impression: Pain, dental, URI (upper respiratory infection) Disposition: HOME SELF-CARE Condition: Stable Instructions: Toothache (ED) Additional Instructions: Please return to the Emergency Department if symptoms worsen or any other concerns. Is patient prescribed a controlled substance at d/c from ED?: No Referrals: Meenakshi Sy MD [Primary Care Provider] - 1-2 days Time of Disposition: 15:22
== END 2018-04-18 15:35 | disposition home or self-care (01) ==
LOC: EC 14:14
DX: O99.512 Diseases of the respiratory system complicating pregnancy, second trimester (principal); J06.9 Acute upper respiratory infection, unspecified; O99.612 Diseases of the digestive system complicating pregnancy, second trimester; K08.89 Other specified disorders of teeth and supporting structures; O21.9 Vomiting of pregnancy, unspecified; J45.909 Unspecified asthma, uncomplicated; O99.342 Other mental disorders complicating pregnancy, second trimester; F32.9 Major depressive disorder, single episode, unspecified; Z79.84 Long term (current) use of oral hypoglycemic drugs; Z79.899 Other long term (current) drug therapy; Z3A.21 21 weeks gestation of pregnancy
CPT/HCPCS: 71046; 99283; 96372; J0696

== ENCOUNTER 2018-06-01 12:13 | Outpatient (CLI) | payer OTHER ==
[2018-06-01] MEDS ORDERED: DEXTROSE 5%-LACTATED RINGERS 1,000 ML IV SCH ×2 (13:00→13:45)
[2018-06-01 15:49] VITALS: BP 128/76; PULSE 105; RESP 18; TEMP 98.4
--- NOTE | 2018-06-06 10:46 | P.MSEPDOC ---
Presenting Problems - Arrival Data Date of Arrival on Unit: 06/01/18 Time of Arrival on Unit: 12:13 Mode of Transport: Ambulatory - Complaint OB-Reason for Admission/Chief Complaint: Other Comment: lost mucus plug Medical History - Information : 2 Para: 1 Term: 1 : 0 Abortions: Spontaneous or Elective: 0 Number of Living Children: 1 - Gestational Age Gestational Age by JUDSON (wks/days): 27 Weeks and 4 Days Review of Systems - Review of Systems Constitutional: No problems Breast: No problems ENT: No problems Cardiovascular: No problems Respiratory: No problems Gastrointestinal: No problems Genitourinary: No problems Musculoskeletal: No problems Neurological: No problems Skin: No problems Vital Signs - Temperature Temperature: 98.4 F Temperature Source: Oral - Pulse Right Brachial Pulse Rate: 105 Pulse Assessment Method: Automatic Cuff - Respirations Respiratory Rate: 18 Oxygen Delivery Method: Room Air O2 Sat by Pulse Oximetry: 99 - Blood Pressure Right Arm Blood Pressure: 128/76 Blood Pressure Mean: 93 Blood Pressure Source: Automatic Cuff Medical Screen Scoring (Pre) - Cervical Exam Dilation: 0 cm = 0 Membranes: Intact - Uterine Contractions Frequency: N/A Duration: N/A Intensity: N/A - Maternal Vital Signs Maternal Temperature: N/A Maternal Blood Pressure: N/A Signs of Preeclampsia: N/A Maternal Respirations: N/A - Pain Assessment Pain Scale Used: Numeric (1 - 10) Pain Intensity: 0 Pain Management Goal: 0 Pain Behavior: None Exhibited - Assessment Baseline FHR: 140 Heart Rate - NICHD Category: Category I (Normal) = 0 Position: N/A Station: N/A - Total Score Total Score (Pre): 0 - Level of Risk Level of Risk: Low (0-5) Physician Notification (Pre) - Physician Notified Spoke With: blaine New Order Received: Yes - Notification Comment Comment: discharge home. rest, no intercourse, fluid intake increase. call office tomorrow am for appt during week with dr colón or constance ferraro for discomfort. Medical Screen Scoring (Post) - Cervical Exam Dilation: Exam Deferred Effacement: Exam Deferred Membranes: Intact - Uterine Contractions Frequency: N/A - Maternal Vital Signs Maternal Temperature: N/A Maternal Blood Pressure: N/A Signs of Preeclampsia: N/A Maternal Respirations: N/A - Pain Assessment Pain Location and Character: Right, Lateral, Abdomen Pain Scale Used: Numeric (1 - 10) Pain Intensity: 3 Pain Description: *Acute Pain Frequency: Occasional Pain Behavior: None Exhibited, Vocalization Pain Aggravating Factors: Activity, Lifting - Maternal Trauma Maternal Trauma: N/A - Assessment Heart Rate: 150 Heart Rate - NICHD Category: Category I (Normal) = 0 Position: N/A Station: N/A - Total Score Total Score (Post): 0 - Post Treatment Level of Risk Post Treatment Level of Risk: Low (0-5) Physician Notification (Post) - Physician Notified Physician Notified Date: 06/01/18 Physician Notified Time: 15:20 Physician/Practitioner Notified:: blaine New Order Received: Yes - Notification Comment Comment: disch home. to call office in am for appt during the week with dr colón or jasmine. increase fluid intake, tylenol for discomfort, no intercourse. rest. to call dr colón if symptoms worsen. Disposition - Disposition OB Disposition: Physician follow up in office, Discharge to home Discharge Date: 06/01/18 Discharge Time: 15:42 I agree with the RN Medical Screening Exam: Yes Physician's MSE Comment: Follow up with Dr. Colón or nurse practitioner Stephanie Risk & Benefit of care provided described in d/c instruction: Yes Diagnosis: FALSE LABOR BEFORE 37 COMPLETED WEEKS OF GEST, SECOND TRI
== END 2018-06-01 15:40 | disposition home or self-care (01) ==
LOC: FBPOP 12:13
PROVIDERS: ATTEND Obstetrics & Gynecology
DX: O47.02 False labor before 37 completed weeks of gestation, second trimester (principal); Z3A.27 27 weeks gestation of pregnancy
CPT/HCPCS: 96360; 96361; G0463; 99213; 99214

== ENCOUNTER → 2018-06-20 | Outpatient (CLI) | payer OTHER ==
[2018-06-20 13:00] LABS: Glucose 3 Hour, Gest 119 mg/dL
== END | disposition home or self-care (01) ==
LOC: LABWHC1 08:28
PROVIDERS: ATTEND Obstetrics & Gynecology
DX: O99.810 Abnormal glucose complicating pregnancy (principal); Z3A.00 Weeks of gestation of pregnancy not specified
CPT/HCPCS: 36415; 82951; 82952

== ENCOUNTER 2018-07-01 13:16 | Outpatient (CLI) | payer OTHER ==
[2018-07-01 14:20] VITALS: BP 123/68; PULSE 76; RESP 18; TEMP 97.4
--- NOTE | 2018-07-09 08:06 | P.MSEPDOC ---
Presenting Problems - Arrival Data Date of Arrival on Unit: 07/01/18 Time of Arrival on Unit: 13:16 Mode of Transport: Ambulatory - Complaint OB-Reason for Admission/Chief Complaint: Possible Onset of Labor Medical History - Information : 2 Para: 1 Term: 1 : 0 Abortions: Spontaneous or Elective: 0 Number of Living Children: 1 - Gestational Age Gestational Age by JUDSON (wks/days): 31 Weeks and 6 Days Review of Systems - Review of Systems Constitutional: No problems Breast: No problems ENT: No problems Cardiovascular: No problems Respiratory: No problems Gastrointestinal: No problems Genitourinary: No problems Musculoskeletal: No problems Neurological: No problems Skin: No problems Vital Signs - Temperature Temperature: 97.4 F Temperature Source: Temporal Artery Scan - Pulse Right Brachial Pulse Rate: 76 Pulse Assessment Method: Automatic Cuff - Respirations Respiratory Rate: 18 Oxygen Delivery Method: Room Air - Blood Pressure Right Arm Blood Pressure: 123/68 Blood Pressure Mean: 86 Blood Pressure Source: Automatic Cuff Medical Screen Scoring (Pre) - Cervical Exam Dilation: 0 cm = 0 Membranes: Intact - Uterine Contractions Frequency: N/A Duration: N/A Intensity: N/A - Maternal Vital Signs Maternal Temperature: N/A Maternal Blood Pressure: N/A Signs of Preeclampsia: N/A Maternal Respirations: N/A - Maternal Trauma Maternal Trauma: N/A - Assessment Baseline FHR: 145 NST: Reactive - Total Score Total Score (Pre): 0 - Level of Risk Level of Risk: Low (0-5) Medical Screen Scoring (Post) - Cervical Exam Dilation: 0 cm = 0 Membranes: Intact - Uterine Contractions Frequency: N/A Duration: N/A Intensity: N/A - Maternal Vital Signs Maternal Temperature: N/A Maternal Blood Pressure: N/A Signs of Preeclampsia: N/A Maternal Respirations: N/A - Maternal Trauma Maternal Trauma: N/A - Assessment Heart Rate: 145 Heart Rate - NICHD Category: Category I (Normal) = 0 NST: Reactive Position: N/A Station: N/A - Total Score Total Score (Post): 0 - Post Treatment Level of Risk Post Treatment Level of Risk: Low (0-5) Physician Notification (Post) - Physician Notified Physician Notified Date: 07/01/18 Physician Notified Time: 14:40 Physician/Practitioner Notified:: Dr Colón Spoke With: Dr Colón New Order Received: Yes - Notification Comment Comment: Discharge Home and follow up in office within the next 7 days Disposition - Disposition OB Disposition: Physician follow up in office, Discharge to home Discharge Date: 07/01/18 Discharge Time: 14:50 I agree with the RN Medical Screening Exam: Yes Risk & Benefit of care provided described in d/c instruction: Yes Diagnosis: FALSE LABOR BEFORE 37 COMPLETED WEEKS OF GEST, THIRD TRI
== END 2018-07-01 14:50 | disposition home or self-care (01) ==
LOC: FBPOP 13:16
PROVIDERS: ATTEND Obstetrics & Gynecology
DX: O47.03 False labor before 37 completed weeks of gestation, third trimester (principal); Z3A.31 31 weeks gestation of pregnancy
CPT/HCPCS: 59025; 82731; G0463; 99213

== ENCOUNTER 2018-07-28 13:42 | Outpatient (CLI) | payer BC, OTHER ==
[2018-07-28 14:49] VITALS: BP 130/62; PULSE 88; RESP 16; TEMP 97
[2018-07-28] MEDS ORDERED: DEXTROSE 5%-LACTATED RINGERS 1,000 ML IV SCH (15:45)
--- NOTE | 2018-08-11 09:25 | P.MSEPDOC ---
Presenting Problems - Arrival Data Date of Arrival on Unit: 07/28/18 Time of Arrival on Unit: 14:00 Mode of Transport: Ambulatory - Complaint OB-Reason for Admission/Chief Complaint: Rule Out SROM Comment: diahrea and contx all day Medical History - Information : 2 Para: 1 Term: 1 : 0 Abortions: Spontaneous or Elective: 0 Number of Living Children: 1 - Gestational Age Gestational Age by JUDSON (wks/days): 35 Weeks and 5 Days - History Complications: No Care Review of Systems - Review of Systems Constitutional: No problems Breast: No problems ENT: No problems Cardiovascular: No problems Respiratory: No problems Gastrointestinal: No problems Genitourinary: No problems Musculoskeletal: No problems Neurological: No problems Skin: No problems Vital Signs - Temperature Temperature: 97.0 F Temperature Source: Temporal Artery Scan - Pulse Radial Pulse Rate: 88 Pulse Assessment Method: Automatic Cuff - Respirations Respiratory Rate: 16 Oxygen Delivery Method: Room Air - Blood Pressure Right Arm Blood Pressure: 130/62 Blood Pressure Mean: 84 Blood Pressure Source: Automatic Cuff Medical Screen Scoring (Pre) - Cervical Exam Dilation: 0 cm = 0 Effacement: Exam Deferred Membranes: Intact - Uterine Contractions Frequency: > or = 36 weeks =2 Duration: > 40 seconds = 2 Intensity: N/A - Maternal Vital Signs Maternal Temperature: N/A Maternal Blood Pressure: N/A Signs of Preeclampsia: N/A Maternal Respirations: N/A - Pain Assessment Pain Location and Character: Abdomen Pain Scale Used: Numeric (1 - 10) Pain Intensity: 2 - Maternal Trauma Maternal Trauma: N/A - Assessment Baseline FHR: 130 Heart Rate - NICHD Category: Category I (Normal) = 0 NST: Reactive Position: N/A Station: N/A - Total Score Total Score (Pre): 4 - Level of Risk Level of Risk: Low (0-5) Physician Notification (Pre) - Physician Notified Physician Notified Date: 07/28/18 Physician Notified Time: 15:00 Physician/Practitioner Notifed:: stanislaw Spoke With: ramona New Order Received: Yes (triage) Medical Screen Scoring (Post) - Cervical Exam Dilation: 0 cm = 0 Effacement: Exam Deferred Membranes: Intact - Uterine Contractions Frequency: > 5 minutes apart = 1 Duration: N/A Intensity: N/A - Maternal Vital Signs Maternal Temperature: N/A Maternal Blood Pressure: N/A Signs of Preeclampsia: N/A Maternal Respirations: N/A - Pain Assessment Pain Location and Character: Abdomen Pain Scale Used: Numeric (1 - 10) Pain Intensity: 2 Pain Description: Cramping Pain Frequency: Intermittent Pain Behavior: Vocalization - Maternal Trauma Maternal Trauma: N/A - Assessment Heart Rate: 130 Heart Rate - NICHD Category: Category I (Normal) = 0 NST: Reactive Position: N/A Station: N/A - Total Score Total Score (Post): 1 - Post Treatment Level of Risk Post Treatment Level of Risk: Low (0-5) Physician Notification (Post) - Physician Notified Physician Notified Date: 07/28/18 Physician Notified Time: 16:10 Physician/Practitioner Notified:: blaine Spoke With: blaine New Order Received: Yes (discharge home followup in office) Disposition - Disposition OB Disposition: Physician follow up in office, Discharge to home, Written follow up instructions reviewed Discharge Date: 07/28/18 Discharge Time: 16:30 I agree with the RN Medical Screening Exam: Yes Risk & Benefit of care provided described in d/c instruction: Yes Diagnosis: FALSE LABOR BEFORE 37 COMPLETED WEEKS OF GEST, THIRD TRI
== END 2018-07-28 16:30 | disposition home or self-care (01) ==
LOC: FBPOP 13:42
PROVIDERS: ATTEND Obstetrics & Gynecology
DX: O47.03 False labor before 37 completed weeks of gestation, third trimester (principal); Z3A.35 35 weeks gestation of pregnancy
CPT/HCPCS: 59025; 96360; 96361; 99214

== ENCOUNTER 2018-08-27 06:02 | Inpatient (IN) | payer BC ==
[2018-08-27] MEDS ORDERED: METHYLERGONOVINE 0.2 MG/ML 1 ML AMP IM PRN (06:07)
[2018-08-27] MEDS ORDERED: OXYTOCIN 10 UNIT/ML 1 ML VIAL IM PRN (06:07)
[2018-08-27] MEDS ORDERED: TERBUTALINE 1 MG/ML VIAL SQ PRN (06:07)
[2018-08-27] MEDS ORDERED: LIDOCAINE 0.5% (PF) 5 MG/ML (50 ML SDV) SQ PRN (06:07)
[2018-08-27] MEDS ORDERED: CARBOPROST TROMETHAMINE 250 MCG/ML 1 ML AMP IM PRN (06:07)
[2018-08-27] MEDS ORDERED: OXYTOCIN 30 UNITS/500 ML NS 30 UNIT in SALINE 1 500ML.BAG IV SCH (06:15)
[2018-08-27 06:17] VITALS: BMI 36.5
[2018-08-27 06:51] LABS: Basophils % (A) 0 %; Eosinophils # (A) 0.2 k/uL (0-0.7); Eosinophils % (A) 3 %; HCT 40.2 % (34.0-46.0); HGB 13.1 gm/dL (11.4-16.0); Lymphocytes % (A) 27 %; MCH 29.3 pg (25.0-35.0); MCHC 32.6 g/dL (31.0-37.0); MCV 89.8 fL (80.0-100.0); Mean Platelet Volume 8.7; Monocytes # (A) 0.3 k/uL (0-1.0); Monocytes % (A) 4 %; Neutrophils # (A) 4.7 k/uL (1.3-7.7); Neutrophils % (A) 64 %; Platelet Count 137 k/uL (150-450); RBC 4.47 m/uL (3.80-5.40); RDW 15.2 % (11.5-15.5); WBC 7.4 k/uL (3.8-10.6)
[2018-08-27] MEDS: LACTATED RINGERS 1,000 ML IV SCH ×2 (07:00→10:45)
--- NOTE | 2018-08-27 07:30 | P.HPOB ---
History of Present Illness H&P Date: 08/27/18 This is a 28-year-old white female 2 para 1001 EDC 09/02/2018 at 39 and one sevenths weeks' gestation. Patient presents today for induction with favorable multiparous cervix. Fetus is been active throughout the . She denies fluid leakage or vaginal bleeding. Past medical history is significant for anxiety, bipolar disorder, depression, polycystic ovarian syndrome. Past surgical history cholecystectomy 2013, tonsillectomy 2004, tubes in the ears as a child. Current medications metformin 500 mg twice daily, Cordova catheter daily, vitamin D supplement daily, vitamin daily. ALLERGIES none known. Family history significant for hypertension, sjrogren's syndrome, laryngeal malacia, tracheomalacia, multiple myeloma, hypothyroidism. Social history patient is , she denies tobacco, alcohol, or drug use. history is significant for blood type O positive, rubella status immune. VDRL testing, urine culture, gonorrhea and chlamydia cultures, HIV test ing, hepatitis B surface antigen, group B strep cultures all negative. One hour Glucola elevated, 3 hour GTT within normal limits. On exam this is a pleasant white female who is 5 foot 7 inches, 233 pounds, blood pressure 137/82, vital signs are stable and she is afebrile. The general physical exam is within normal limits. The cervix is 3-4 cm dilated, 60-70% effaced, -2 station, vertex presentation, soft, anterior. Artificial amniorrhexis reveals abundant clear fluid. heart rate is consistent with reactive NST. We are unable to monitor heart rate after amniorrhexis, therefore scalp lead is applied. Baseline 140s, frequent accelerations. Uterine contractions occurring every 4-5 minutes apart. The are of mild intensity. Impression: 39 and one sevenths weeks intrauterine , here for elective induction of labor with favorable cervix, all signs reassuring. Plan: Continue close maternal and surveillance. Oxytocin per hospital protocol. Epidural may be placed at patient's request. Anticipate normal spontaneous vaginal delivery. Review of Systems Constitutional: Reports as per HPI Past Medical History Past Medical History: No Reported History Additional Past Medical History / Comment(s): EXERCISE INDUCED ASTHMA, IBS, GALLSTONES, INTERMITTENT ABD PAIN, INTERMITTENT BLOOD WITH STOOLS, POLYCYSTIC OVARIAN SYNDROME. History of Any Multi-Drug Resistant Organisms: None Reported Past Surgical History: Cholecystectomy, Ear Surgery, Tonsillectomy Additional Past Surgical History / Comment(s): COLONOSCOPY, WISDOM TEETH REMOVEAL, TUBES GALINDO EARS X2 Past Anesthesia/Blood Transfusion Reactions: No Reported Reaction Past Psychological History: Anxiety, Bipolar, Depression Smoking Status: Never smoker Past Alcohol Use History: None Reported Past Drug Use History: None Reported - Past Family History Father Family Medical History: Hypertension, Prostate Disorder Medications and Allergies Home Medications Medication Instructions Recorded Confirmed Type Folic Acid 1 mg PO DAILY 03/28/18 07/28/18 History Fof-Pkfe-Duehq Acid 1 cap PO DAILY 03/28/18 07/28/18 History [-U Capsule (formulary)] buPROPion XL [Wellbutrin XL] 150 mg PO DAILY 03/28/18 07/28/18 History Terbinafine [LamISIL] 25 mg PO DAILY 07/28/18 07/28/18 History Allergies Allergy/AdvReac Type Severity Reaction Status Date / Time No Known Allergies Allergy Verified 07/28/18 14:12 Exam Vital Signs Temp Pulse Resp BP 08/27/18 06:06 97.6 F 115 H 16 137/82 Intake and Output 08/26/18 08/27/18 08/27/18 22:59 06:59 14:59 Other: Weight 105.687 kg See dictation under HPI please Results Result Diagrams: 08/27/18 06:23 Abnormal Lab Results - Last 24 Hours (Table) 08/27/18 Range/Units 06:23 Plt Count 137 L (150-450) k/uL Assessment and Plan Assessment: 39 and one sevenths weeks intrauterine , here for elective induction of labor. Mild thrombocytopenia noted. All signs otherwise reassuring. Plan: Continue close maternal and surveillance. Anticipate normal spontaneous vaginal delivery. Time with Patient: Less than 30
[2018-08-27] MEDS ORDERED: fentaNYL (PF) 50 MCG/ML 5 ML AMP ONE (10:47)
[2018-08-27] MEDS ORDERED: SODIUM CHLORIDE 0.9% 100 ML BAG ONE (10:47)
[2018-08-27] MEDS ORDERED: ROPIVACAINE 5MG/ML 20ML VIAL ONE (10:47)
[2018-08-27] MEDS ORDERED: BENZOCAINE/MENTHOL SPRAY 1 GM/SPRAY AEROSOL TOPICAL PRN (13:22)
[2018-08-27] MEDS ORDERED: SIMETHICONE 80 MG CHEWABLE PO PRN (13:22)
[2018-08-27] MEDS ORDERED: diphenhydrAMINE 50 MG/ML 1 ML VIAL IVP PRN ×2 (13:22)
[2018-08-27] MEDS ORDERED: ZOLPIDEM 5 MG TAB PO PRN (13:22)
[2018-08-27] MEDS ORDERED: diphenhydrAMINE 25 MG CAP PO PRN (13:22)
[2018-08-27] MEDS ORDERED: LANOLIN CREAM 5 GM TUBE TOPICAL PRN (13:22)
[2018-08-27] MEDS ORDERED: diphenhydrAMINE 50 MG CAP PO PRN (13:22)
[2018-08-27] MEDS ORDERED: WITCH HAZEL 1 EACH MED..PAD TOPICAL PRN (13:22)
[2018-08-27] MEDS ORDERED: HYDROCORTISONE 2.5% RECTAL CREAM 30 GM TUBE RECTAL PRN (13:22)
--- NOTE | 2018-08-27 13:22 | P.PROBDLV ---
Vaginal Delivery Note - . Vaginal Delivery Note: This is a 28-year-old white female 2 para 1001 EDC 09/02/2018 at 39 and one sevenths weeks' gestation. Patient presented for induction with favorable multiparous cervix, essentially unremarkable. Blood type is O+, rubella status immune, group B strep cultures negative. Please see my dictated history and physical for details. Artificial amniorrhexis revealed clear fluid. Oxytocin was started and titrated per hospital protocol. Patient became uncomfortable, requested an epidural and this was placed without difficulty per the anesthesia staff. Platelets on admission were noted to be slightly low at 137,000. Patient progressed well through the first stage of labor and was judged to be completely dilated at 1254 hrs. Perineal body was prepped and draped in usual sterile fashion. With excellent expulsive efforts the infant's head delivered occiput anterior and she restituted accordingly. There was no nuchal cord noted. The right or anterior shoulder was delivered easily from underneath the pubic symphysis at which time the oropharynx, nasopharynx, and external nares were bulb suctioned on the perineal body. Patient was officially delivered of a liveborn female infant at 1304 hrs. Umbilical cord was doubly clamped and ligated, she was handed to waiting nurses for evaluation where scores of 8 and 9 at one and 5 minutes respectively were given. The placenta delivered spontaneously, it was inspected and noted to be intact with trivascular cord at 1309 hrs. True knot in the umbilical cord was noted. At this time the uterus was massaged. Careful inspection of the cervix, vagina, perineum, periurethral, and perirectal areas revealed a very small first-degree midline laceration. This was repaired in the usual fashion using 3-0 undyed Vicryl. All sponge needle and enhancement counts are correct at the end of the procedure. Total estimated blood loss 250 mL's. Infant weighed 8 lbs. 4 oz. or 3745 g. Patient and her are allowed to begin the bonding experience in the LDR.
[2018-08-27] MEDS ORDERED: OXYTOCIN 20 UNITS/1000 ML NS 1,000 ML IV SCH (13:30)
[2018-08-27] MEDS: IBUPROFEN 600 MG TAB PO PRN (17:58)
[2018-08-28] MEDS: IBUPROFEN 600 MG TAB PO PRN ×2 (00:27→08:29)
[2018-08-28 01:28] VITALS: PULSE 98
[2018-08-28] MEDS: SENNOSIDES-DOCUSATE SODIUM 1 EACH TAB PO SCH ×2 (01:32→08:29)
[2018-08-28] MEDS: ACETAMINOPHEN TAB 325 MG TAB PO PRN ×2 (05:15→15:24)
[2018-08-28 07:25] LABS: Basophils % (A) 0 %; Eosinophils # (A) 0.3 k/uL (0-0.7); Eosinophils % (A) 3 %; HCT 36.1 % (34.0-46.0); HGB 11.6 gm/dL (11.4-16.0); Lymphocytes # (A) 1.6 k/uL (1.0-4.8); Lymphocytes % (A) 18 %; MCH 29.6 pg (25.0-35.0); MCHC 32.1 g/dL (31.0-37.0); MCV 92.1 fL (80.0-100.0); Mean Platelet Volume 8.6; Monocytes # (A) 0.3 k/uL (0-1.0); Monocytes % (A) 4 %; Neutrophils # (A) 6.3 k/uL (1.3-7.7); Neutrophils % (A) 73 %; Platelet Count 117 k/uL (150-450); RBC 3.92 m/uL (3.80-5.40); RDW 14.9 % (11.5-15.5); WBC 8.7 k/uL (3.8-10.6)
--- NOTE | 2018-08-28 07:34 | P.DS ---
Providers Date of admission: 08/27/18 06:02 Expected date of discharge: 08/28/18 Attending physician: Litzy Colón Primary care physician: Stated None Hospital Course: This is a 28-year-old white female 2 para 1001 EDC 09/02/2018 at 39 and one sevenths weeks' gestation. Patient presented for elective induction with favorable multiparous cervix. Fetus is been active throughout the . Patient's blood type is O+, rubella status immune, group B strep cultures negative. Please see my dictated history and physical for details. Patient was admitted, artificial amniorrhexis revealed clear fluid. Oxytocin was started and titrated per hospital protocol. Epidural was placed per her request. She went on to swiftly deliver vaginally a liveborn female with scores of 8 and 9 at one and 5 minutes respectively. Infant weight 8 lbs. 4 oz. or 3745 g. There was a first-degree perineal laceration in the midline easily repaired and an estimated blood loss of 250 mL's. Please see dictated delivery note for details. This morning the patient is doing well. She is voiding, ambulating and passing flatus without difficulty. Vital signs are stable and she is afebrile. Fundus is firm and in the midline, symmetric and 18 week size. Extremities are negative for edema. infant is doing well. Breast-feeding is also going well. Patient has no problems or complaints and is requesting discharge home. She is very good condition for discharge. She will follow-up with me in the office in 6 weeks. I have reminded her no intercourse, tampons or douching. She will use [id number] Advil or Aleve, or Motrin as needed for pain. I've asked her to call with any fevers shakes or chills, foul smelling or copious lochia, with any large blood clots, with any pain not alleviated by [id number]-[id number] products, with any issues breast- feeding, or indeed with any concerns. We have briefly discussed options for contraception and we will discuss this further in the office in 6 weeks. Patient Condition at Discharge: Good Plan - Discharge Summary Discharge Rx Participant: No New Discharge Prescriptions: No Action buPROPion XL [Wellbutrin XL] 150 mg PO DAILY Otr-Gafb-Merzr Acid [-U Capsule (formulary)] 1 cap PO DAILY Folic Acid 1 mg PO DAILY Terbinafine [LamISIL] 25 mg PO DAILY Discharge Medication List Folic Acid 1 mg PO DAILY 03/28/18 [History] Znv-Ypiq-Hawrs Acid [-U Capsule (formulary)] 1 cap PO DAILY 03/28/18 [History] buPROPion XL [Wellbutrin XL] 150 mg PO DAILY 03/28/18 [History] Terbinafine [LamISIL] 25 mg PO DAILY 07/28/18 [History] Follow up Appointment(s)/Referral(s): Litzy Colón MD [STAFF PHYSICIAN] - 6 Weeks Discharge Disposition: HOME SELF-CARE
[2018-08-28] MEDS ORDERED: buPROPion XL 150 MG TAB.ER.24H PO SCH (09:00)
[2018-08-28] MEDS ORDERED: buPROPion 75 MG TAB PO SCH (09:00)
[2018-08-28 10:35] VITALS: BP 128/76; RESP 18; TEMP 98.6
== END 2018-08-28 15:40 | disposition home or self-care (01) | DRG 806 ==
LOC: 4FBP 06:02
PROVIDERS: ADMIT Obstetrics & Gynecology; ATTEND Obstetrics & Gynecology
PROC: 10E0XZZ Delivery of Products of Conception, External Approach (ICD-10-PCS; principal; 2018-08-27)
PROC: 0HQ9XZZ Repair Perineum Skin, External Approach (ICD-10-PCS; 2018-08-27)
PROC: 10907ZC Drainage of Amniotic Fluid, Therapeutic from Products of Conception, Via Natural or Artificial Opening (ICD-10-PCS; 2018-08-27)
PROC: 3E033VJ Introduction of Other Hormone into Peripheral Vein, Percutaneous Approach (ICD-10-PCS; 2018-08-27)
PROC: 00HU33Z Insertion of Infusion Device into Spinal Canal, Percutaneous Approach (ICD-10-PCS; 2018-08-27)
PROC: 3E0R3BZ Introduction of Anesthetic Agent into Spinal Canal, Percutaneous Approach (ICD-10-PCS; 2018-08-27)
DX: O69.2XX0 Labor and delivery complicated by other cord entanglement, with compression, not applicable or unspecified (principal); O99.12 Other diseases of the blood and blood-forming organs and certain disorders involving the immune mechanism complicating childbirth; Z37.0 Single live birth; D69.6 Thrombocytopenia, unspecified; O99.344 Other mental disorders complicating childbirth; O99.62 Diseases of the digestive system complicating childbirth; K58.9 Irritable bowel syndrome, unspecified; O99.52 Diseases of the respiratory system complicating childbirth; O99.284 Endocrine, nutritional and metabolic diseases complicating childbirth; F31.9 Bipolar disorder, unspecified; F41.9 Anxiety disorder, unspecified; O70.0 First degree perineal laceration during delivery; E28.2 Polycystic ovarian syndrome; J45.990 Exercise induced bronchospasm; Z3A.39 39 weeks gestation of pregnancy; Z90.49 Acquired absence of other specified parts of digestive tract; Z79.84 Long term (current) use of oral hypoglycemic drugs; Z79.899 Other long term (current) drug therapy; Z80.7 Family history of other malignant neoplasms of lymphoid, hematopoietic and related tissues; Z82.49 Family history of ischemic heart disease and other diseases of the circulatory system; Z86.39 Personal history of other endocrine, nutritional and metabolic disease; Z87.42 Personal history of other diseases of the female genital tract
CPT/HCPCS: 85025; 86850; 86900; 86901

== ENCOUNTER → 2019-03-09 | Outpatient (CLI) | payer BC, OTHER ==
[2019-03-09 14:15] VITALS: BP 124/85; PULSE 102; RESP 16; TEMP 98.2
--- NOTE | 2019-03-09 14:25 | P.HPBAR ---
Bariatric H&P - History & Physicial H&P Date: 03/09/19 History & Physicial: Visit/CC: Initial Visit Patient initial contact: Initial weight: Initial weight in pounds: Height: Initial BMI: Last weight: Current weight: Current weight in pounds: Current BMI: [place] body weight (based on NIH guidelines): Excess body weight loss: The patient is a 28 year-old F who presents for Bariatric Assessment. Patient presents today for presurgical consultation. Patient's had lifetime problems obesity. Her weight is 235 pounds. Her BMI is 40. The patient wished to undergo sleeve gastrectomy. Past Medical History Past Medical History: No Reported History Additional Past Medical History / Comment(s): EXERCISE INDUCED ASTHMA, IBS, GALLSTONES, INTERMITTENT ABD PAIN, INTERMITTENT BLOOD WITH STOOLS, POLYCYSTIC OVARIAN SYNDROME. History of Any Multi-Drug Resistant Organisms: None Reported Past Surgical History: Cholecystectomy, Ear Surgery, Tonsillectomy Additional Past Surgical History / Comment(s): COLONOSCOPY, WISDOM TEETH REMOVEAL, TUBES GALINDO EARS X2 Past Anesthesia/Blood Transfusion Reactions: No Reported Reaction Past Psychological History: Anxiety, Bipolar, Depression Smoking Status: Never smoker Past Alcohol Use History: None Reported Past Drug Use History: None Reported - Past Family History Father Family Medical History: Hypertension, Prostate Disorder Surgical - Exam Vital Signs Temp Pulse Resp BP 98.2 F 102 H 16 124/85 03/09/19 14:12 03/09/19 14:12 03/09/19 14:12 03/09/19 14:12 - General well developed, well nourished, no distress - Eyes PERRL - ENT normal pinna, normal nares - Neck no masses - Respiratory normal expansion - Cardiovascular Rhythm: regular - Abdomen Abdomen: soft, non tender Bariatric Assessment & Plan Plan: RBC. Patient will undergo EGD to evaluate her stomach for sleeve gastrectomy. She'll follow-up in one month. Bariatric Checklist Checklist: Plan: Checklist: EGD: 1. Hiatal hernia: 2. H. Pylori: HgbA1c: Vitamin D: Smoking: Never smoker Primary care physician referral: Psychiatry clearance: Cardiology clearance: Sleep study: Diet journal: VTE risk score: VTE risk level: Rehab needs at discharge:
--- NOTE | 2019-03-09 14:41 | P.HPBAR ---
Bariatric H&P - History & Physicial H&P Date: 03/09/19 History & Physicial: Visit/CC: Initial Visit Patient initial contact: Initial weight: Initial weight in pounds: Height: Initial BMI: Last weight: Current weight: Current weight in pounds: Current BMI: [place] body weight (based on NIH guidelines): Excess body weight loss: The patient is a 28 year-old F who presents for Bariatric Assessment. Patient presents today for presurgical consultation. Patient's had lifetime problems obesity. Her weight is 235 pounds. Her BMI is 40. The patient wished to undergo sleeve gastrectomy. Past Medical History Past Medical History: No Reported History Additional Past Medical History / Comment(s): EXERCISE INDUCED ASTHMA, IBS, GALLSTONES, INTERMITTENT ABD PAIN, INTERMITTENT BLOOD WITH STOOLS, POLYCYSTIC OVARIAN SYNDROME. History of Any Multi-Drug Resistant Organisms: None Reported Past Surgical History: Cholecystectomy, Ear Surgery, Tonsillectomy Additional Past Surgical History / Comment(s): COLONOSCOPY, WISDOM TEETH REMOVEAL, TUBES GALINDO EARS X2 Past Anesthesia/Blood Transfusion Reactions: No Reported Reaction Past Psychological History: Anxiety, Bipolar, Depression Smoking Status: Never smoker Past Alcohol Use History: None Reported Past Drug Use History: None Reported - Past Family History Father Family Medical History: Hypertension, Prostate Disorder Surgical - Exam Vital Signs Temp Pulse Resp BP 98.2 F 102 H 16 124/85 03/09/19 14:12 03/09/19 14:12 03/09/19 14:12 03/09/19 14:12 Bariatric Assessment & Plan Plan: RBC. Patient will undergo EGD to evaluate her stomach for sleeve gastrectomy. She'll follow-up in one month. Bariatric Checklist Checklist: Plan: Checklist: EGD: 1. Hiatal hernia: 2. H. Pylori: HgbA1c: Vitamin D: Smoking: Never smoker Primary care physician referral: Psychiatry clearance: Cardiology clearance: Sleep study: Diet journal: VTE risk score: VTE risk level: Rehab needs at discharge:
[2019-03-09 16:12] LABS: HGB 13.4 gm/dL (11.4-16.0); MCH 30.7 pg (25.0-35.0); MCHC 34.4 g/dL (31.0-37.0); MCV 89.4 fL (80.0-100.0); Mean Platelet Volume 6.4; Platelet Count 200 k/uL (150-450); RBC 4.36 m/uL (3.80-5.40); RDW 12.5 % (11.5-15.5); WBC 8.3 k/uL (3.8-10.6)
[2019-03-10 06:46] LABS: Hemoglobin A1C 4.7 % (4.0-6.0)
[2019-03-10 06:47] LABS: African American GFR (CKD) 101.6 (60.0-200.0); Albumin 4.7 g/dL (3.80-4.90); Albumin/Globulin Ratio 2.76 (1.60-3.17); Anion Gap 10.2 mmol/L (4.00-12.00); BUN/Creat Ratio 17.78 Ratio (12.00-20.00); Calcium 9.8 mg/dL (8.7-10.3); Carbon Dioxide 25.8 mmol/L (21.6-31.8); Folate, Serum 18.2 ng/mL; Globulin 1.7 g/dL (1.6-3.3); Non-African American GFR(CKD) 87.6 (60.0-200.0); Potassium 4.3 mmol/L (3.5-5.5); Total Bilirubin 0.6 mg/dL (0.2-1.2); Total Protein 6.4 g/dL (6.2-8.2)
== END | disposition home or self-care (01) ==
LOC: BARWHC3 14:02
PROVIDERS: ATTEND Surgery
DX: E66.01 Morbid (severe) obesity due to excess calories (principal); E55.9 Vitamin D deficiency, unspecified; Z68.41 Body mass index [BMI] 40.0-44.9, adult
CPT/HCPCS: 84425; 80053; 82607; 82746; 85027; 82306; 83036; 93005; 36415; G0463; 99211

== ENCOUNTER → 2019-03-24 | Outpatient (CLI) | payer BC, OTHER ==
--- NOTE | 2019-03-25 12:30 | EST ---
EXERCISE STRESS AGE: 28 SEX: F HT: 67" WT: 230 PROTOCOL: Josr Stress Test STAGE: 3 DURATION OF EXERCISE: 8:00 HEART RATE REST: 113 BLOOD PRESSURE REST: 124/81 MAXIMUM HEART RATE ACHIEVED: 165 MAXIMUM BLOOD PRESSURE: 154/61 85% MPHR: 164 100% MPHR: 193 METS: 9.7 INDICATIONS: Chest pain, abnormal EKG CLINICAL INFORMATION: STRESS DATA: Pretesting physical examination showed a heart rate of 113, pressure is 124/81 mmHg. Baseline EKG showed sinus rhythm. The patient exercised on the treadmill according to Josr protocol for a total of 8 minutes and achieved 9.7 METS. Max heart rate was 165, which is about 85% of maximum predicted heart rate. Maximum blood pressure was 154/61 mmHg. Clinically, the patient did not have any symptoms of chest pain or chest discomfort and the EKG did not show any significant ST or T-wave abnormalities concerning for ischemia. CONCLUSION: 1. Excellent exercise tolerance. 2. Normal EKG in response to exercise. 3. Essentially normal stress test for the patient. MMODL / IJN: [id number] /
== END | disposition home or self-care (01) ==
LOC: RADNMMAIN 10:19
PROVIDERS: ATTEND Family Medicine
DX: R07.89 Other chest pain (principal); R94.31 Abnormal electrocardiogram [ECG] [EKG]; E66.9 Obesity, unspecified
CPT/HCPCS: 93017

== ENCOUNTER 2019-03-30 08:10 | Day surgery (SDC) | payer OTHER ==
[2019-03-26 11:50] VITALS: BMI 36.0
[~2019-03-30 08:10] MED LIST: LACTATED RINGERS 1,000 ML IV SCH; LIDOCAINE 1% 20 ML VIAL (10MG/ML) FOR IV START INTRADERMA PRN
[2019-03-30 08:52] VITALS: RESP 16; TEMP 97.9
[2019-03-30] MEDS ORDERED: PROPOFOL 10 MG/ML 20 ML VIAL IV ONE (09:13)
[2019-03-30] MEDS ORDERED: LIDOCAINE 1% INJ 10MG/ML (20 ML MDV) ONE (09:13)
--- NOTE | 2019-03-30 09:15 | P.GSHP ---
History of Present Illness H&P Date: 03/30/19 Chief Complaint: GERD this a 28-year-old female referred from Dr. manning. Patient points of GERD. She presents today for EGD. Past Medical History Past Medical History: Asthma Additional Past Medical History / Comment(s): EXERCISE INDUCED ASTHMA, NO RECENT ISSUES, NO MEDICATIONS, IBS, POLYCYSTIC OVARIAN SYNDROME. History of Any Multi-Drug Resistant Organisms: None Reported Past Surgical History: Cholecystectomy, Ear Surgery, Tonsillectomy Additional Past Surgical History / Comment(s): COLONOSCOPY, WISDOM TEETH REMOVEAL, TUBES BILATERAL EARS X2. Past Anesthesia/Blood Transfusion Reactions: No Reported Reaction Past Psychological History: Anxiety, Bipolar, Depression Smoking Status: Never smoker Past Alcohol Use History: None Reported Past Drug Use History: None Reported - Past Family History Father Family Medical History: Hypertension, Prostate Disorder Medications and Allergies Home Medications Medication Instructions Recorded Confirmed Type buPROPion XL [Wellbutrin XL] 150 mg PO DAILY 03/28/18 03/26/19 History Cholecalciferol [Vitamin D3 (25 1,000 unit PO DAILY 03/26/19 03/26/19 History Mcg = 1000 Iu)] lamoTRIgine [LaMICtal] 25 mg PO QAM 03/26/19 03/26/19 History lamoTRIgine [LaMICtal] 50 mg PO 1900 03/26/19 03/26/19 History metFORMIN HCL 500 mg PO BID 03/26/19 03/26/19 History Allergies Allergy/AdvReac Type Severity Reaction Status Date / Time No Known Allergies Allergy Verified 03/26/19 11:53 Surgical - Exam Vital Signs Temp Pulse Resp BP Pulse Ox 97.9 F 84 16 137/64 98 03/30/19 08:47 03/30/19 08:47 03/30/19 08:47 03/30/19 08:47 03/30/19 08:47 - General well developed, well nourished, no distress - Eyes PERRL - ENT normal pinna - Neck no masses - Respiratory normal expansion - Cardiovascular Rhythm: regular - Abdomen Abdomen: soft, non tender Assessment and Plan Assessment: GERD. We'll perform EGD.
--- NOTE | 2019-03-30 09:24 | P.OP ---
Date of Procedure: 03/30/19 Preoperative Diagnosis: GERD Postoperative Diagnosis: antral gastritis No evidence of hiatal hernia Procedure(s) Performed: EGD Anesthesia: MAC Surgeon: Rene Green Pathology: other (antrum) Condition: stable Disposition: PACU Description of Procedure: the patient's placed on the endoscopy table in the lateral position. She received IV sedation. The gastroscope placed oropharynx and passed in the esophagus and into the stomach. Scope was then placed through the pylorus. The first and second portion of the duodenum appeared normal. Scope was then brought back the antrum this. Mildly inflamed. A biopsies performed. Scope was then retroflexed and the remainder of the stomach appeared normal. There is no significant hiatal hernia. The GE junction was at 40 cm. The distal esophagus appeared normal. The proximal esophagus appeared normal. Scope withdrawn patient.
[2019-03-30 09:41] VITALS: BP 133/80; PULSE 83
== END 2019-03-30 10:00 | disposition home or self-care (01) ==
LOC: ORWHC2ENDO 08:10
PROVIDERS: ATTEND Surgery
DX: K21.9 Gastro-esophageal reflux disease without esophagitis (principal); K29.50 Unspecified chronic gastritis without bleeding; Z79.899 Other long term (current) drug therapy; Z82.49 Family history of ischemic heart disease and other diseases of the circulatory system; F31.9 Bipolar disorder, unspecified; F41.9 Anxiety disorder, unspecified
CPT/HCPCS: 81025; 88305; 43239; J2001; J2704

== ENCOUNTER → 2019-06-15 | Outpatient (CLI) | payer OTHER ==
[2019-06-15 13:34] VITALS: BMI 36.1
[2019-06-15 16:22] VITALS: BP 105/59; PULSE 101; TEMP 98.1
== END | disposition home or self-care (01) ==
LOC: BARWHC3 08:54
PROVIDERS: ATTEND Surgery
DX: Z01.818 Encounter for other preprocedural examination (principal); Z90.49 Acquired absence of other specified parts of digestive tract
CPT/HCPCS: 97804; G0463; 99211

== ENCOUNTER 2020-07-05 13:02 | Outpatient (CLI) | payer OTHER, BC ==
[2020-07-05 14:38] VITALS: BP 126/70; PULSE 97; RESP 16; TEMP 97.5
--- NOTE | 2020-07-11 07:33 | P.MSEPDOC ---
Presenting Problems - Arrival Data Date of Arrival on Unit: 07/05/20 Time of Arrival on Unit: 13:02 Mode of Transport: Ambulatory - Complaint OB-Reason for Admission/Chief Complaint: Observation/Evaluation Comment: Pt reports to triage c\complaints of tachycardia Medical History - Information : 3 Para: 2 Term: 2 Number of Living Children: 2 - Gestational Age Gestational Age by JUDSON (wks/days): 36 Weeks and 6 Days - History Comment: Polyhydraminos Review of Systems - Review of Systems Constitutional: No problems Breast: No problems ENT: No problems Cardiovascular: No problems Respiratory: No problems Gastrointestinal: No problems Genitourinary: No problems Musculoskeletal: No problems Neurological: No problems Skin: No problems Vital Signs - Temperature Temperature: 97.5 F Temperature Source: Temporal Artery Scan - Pulse Right Sitting Pulse Rate: 97 Pulse Assessment Method: Pulse Oximetry - Respirations Respiratory Rate: 16 Oxygen Delivery Method: Room Air O2 Sat by Pulse Oximetry: 98 - Blood Pressure Right Arm Sitting Blood Pressure: 126/70 Blood Pressure Mean: 88 Blood Pressure Source: Automatic Cuff Medical Screen Scoring (Pre) - Cervical Exam Dilation: Exam Deferred Effacement: Exam Deferred - Uterine Contractions Frequency: > or = 36 weeks =2 Duration: N/A Intensity: N/A - Maternal Vital Signs Maternal Temperature: N/A Maternal Blood Pressure: N/A Signs of Preeclampsia: N/A Maternal Respirations: N/A - Maternal Trauma Maternal Trauma: N/A - Assessment - Baby A Baseline FHR: 130 Heart Rate - NICHD Category: Category I (Normal) = 0 NST: Reactive Position: N/A Station: N/A - Total Score - Baby A Total Score - Baby A: 2 - Total Score - Baby B Total Score - Baby B: 2 - Total Score - Baby C Total Score - Baby C: 2 - Level of Risk - Baby A Level of Risk - Baby A: Low (0-5) - Level of Risk - Baby B Level of Risk - Baby B: Low (0-5) - Level of Risk - Baby C Level of Risk - Baby C: Low (0-5) Physician Notification (Pre) - Physician Notified Physician Notified Date: 07/05/20 Physician Notified Time: 14:30 New Order Received: Yes - Notification Comment Comment: Spk c\Dr. Colón, advsd , 36 6/, Polyhydraminos, reports to triage. c/concerns of maternal tachycardia, was 173bpm at home c\chest heaviness and SOB. Pt has been on constant pulse ox, HR 89-111, O2 96-98%, lungs clear. Reactive NST. Has appt for NST and visit tomorrow. States to d/c home, follow up as scheduled. Disposition - Disposition OB Disposition: Physician follow up in office, Discharge to home, Written follow up instructions reviewed I agree with the RN Medical Screening Exam: Yes Case reviewed; plan agreed upon as documented in EMR&OBIX.: Yes Comments: Patient was neither seen nor evaluated by me. Diagnosis: FALSE LABOR BEFORE 37 COMPLETED WEEKS OF GEST, THIRD TRI
== END 2020-07-05 14:35 | disposition home or self-care (01) ==
LOC: FBPOP 13:02
PROVIDERS: ATTEND Obstetrics & Gynecology
DX: O47.03 False labor before 37 completed weeks of gestation, third trimester (principal); Z3A.36 36 weeks gestation of pregnancy
CPT/HCPCS: 59025; G0463; 99213

== ENCOUNTER 2020-07-20 05:37 | Inpatient (IN) | payer BC, OTHER ==
[2020-07-20] MEDS: LACTATED RINGERS 1,000 ML IV SCH ×3 (05:45→23:05)
[2020-07-20] MEDS ORDERED: OXYTOCIN 10 UNIT/ML 1 ML VIAL IM PRN (05:51)
[2020-07-20] MEDS ORDERED: TERBUTALINE 1 MG/ML VIAL SQ PRN (05:51)
[2020-07-20] MEDS ORDERED: METHYLERGONOVINE 0.2 MG/ML 1 ML AMP IM PRN (05:51)
[2020-07-20] MEDS ORDERED: LIDOCAINE 0.5% (PF) 5 MG/ML (50 ML SDV) SQ PRN (05:51)
[2020-07-20] MEDS ORDERED: CARBOPROST TROMETHAMINE 250 MCG/ML 1 ML AMP IM PRN (05:51)
[2020-07-20] MEDS ORDERED: OXYTOCIN 30 UNITS/500 ML NS 30 UNIT in SALINE 1 500ML.BAG IV SCH (06:00)
[2020-07-20] MEDS ORDERED: LACTATED RINGERS 1,000 ML IV SCH (06:00)
[2020-07-20 06:12] LABS: Basophils % (A) 0 %; Eosinophils # (A) 0.4 k/uL (0-0.7); Eosinophils % (A) 5 %; HCT 35.8 % (34.0-46.0); HGB 12.5 gm/dL (11.4-16.0); Lymphocytes % (A) 24 %; MCH 31.9 pg (25.0-35.0); MCHC 35.1 g/dL (31.0-37.0); MCV 91.1 fL (80.0-100.0); Mean Platelet Volume 8.4; Monocytes # (A) 0.4 k/uL (0-1.0); Monocytes % (A) 5 %; Neutrophils # (A) 5.4 k/uL (1.3-7.7); Neutrophils % (A) 65 %; Platelet Count 145 k/uL (150-450); RBC 3.93 m/uL (3.80-5.40); RDW 14.6 % (11.5-15.5); WBC 8.4 k/uL (3.8-10.6)
[2020-07-20] MEDS ORDERED: BUTORPHANOL 1 MG/ML 1 ML VIAL IV PRN (07:40)
--- NOTE | 2020-07-20 08:04 | P.HPOB ---
History of Present Illness H&P Date: 07/20/20 Chief Complaint: Here for elective induction of labor This is a 30-year-old white female 3 para 2002 EDC 07/27/2020 at 39 weeks gestation. Fetus is been active throughout the . She is having mild irregular spontaneous contractions. She denies vaginal bleeding or fluid leakage. Past medical history is significant for bipolar disorder, anxiety and depres river, PCO OS. Past surgical history cholecystectomy 2013, tonsillectomy 2004, eustachian tubes in the ears as a child. Current medications metformin 500 mg twice daily, vitamin daily. ALLERGIES none known. Family history significant for hypertension, hypothyroidism, multiple myeloma, Sjogrens syndrome. Social history patient is , she is never been a tobacco smoker, she denies alcohol or drug use. Obstetric history significant for normal spontaneous vaginal deliveries 2, he althy full-term infants. Obstetric history blood type is O+, rubella status immune. Urine culture, hepatitis B surface antigen, HIV testing, gonorrhea and chlamydia cultures, group B strep cultures all negative. One-hour Glucola 162, 3 hour GTT within normal limits. On exam patient is 5 foot 7 inches, 250 pounds, blood pressure 136/71 on admission. Vital signs are stable and patient is afebrile. The general physical exam is within normal limits. Cervix is 4 cm dilated, 60-70% effaced, -2 station, vertex presentation, soft and anterior. Artificial amniorrhexis reveals clear fluid. heart rate is in the 140s with frequent accelerations. Patient is having uterine contractions every 4 minutes apart of mild intensity. Impression: 39 week intrauterine , here for induction of labor, all signs reassuring. And: Close maternal and surveillance. Oxytocin per hospital protocol. Analgesic options have been reviewed. Anticipate normal spontaneous vaginal delivery. Review of Systems Constitutional: Reports as per HPI Past Medical History Past Medical History: No Reported History Additional Past Medical History / Comment(s): EXERCISE INDUCED ASTHMA, IBS, GAL LSTONES, INTERMITTENT ABD PAIN, INTERMITTENT BLOOD WITH STOOLS, POLYCYSTIC OVARIAN SYNDROME. History of Any Multi-Drug Resistant Organisms: None Reported Past Surgical History: Cholecystectomy, Ear Surgery, Tonsillectomy Additional Past Surgical History / Comment(s): COLONOSCOPY, WISDOM TEETH REMOVEAL, TUBES GALINDO EARS X2 Past Anesthesia/Blood Transfusion Reactions: No Reported Reaction Past Psychological History: Anxiety, Bipolar, Depression Smoking Status: Never smoker Past Alcohol Use History: None Reported Past Drug Use History: None Reported - Past Family History Father Family Medical History: Hypertension, Prostate Disorder Medications and Allergies Home Medications Medication Instructions Recorded Confirmed Type Pnv No.95/Ferrous Fum/Folic AC 1 each PO DAILY 07/05/20 07/20/20 History [ Multivitamin Tablet] metFORMIN HCL 500 mg PO BID 07/20/20 07/20/20 History Allergies Allergy/AdvReac Type Severity Reaction Status Date / Time No Known Allergies Allergy Verified 07/20/20 05:48 Exam Vital Signs Temp Pulse Resp BP Pulse Ox 07/20/20 05:42 96.5 F L 104 H 16 136/71 100 Intake and Output 07/19/20 07/20/20 07/20/20 22:59 06:59 14:59 Other: # Voids 1 Weight 113.398 kg see dictation under HPI please Results Result Diagrams: 07/20/20 05:55 Abnormal Lab Results - Last 24 Hours (Table) 07/20/20 Range/Units 05:55 Plt Count 145 L (150-450) k/uL Assessment and Plan Assessment: 39 week intrauterine , here for induction of labor. All signs reassuring. Plan: Oxytocin per hospital protocol. Close maternal and surveillance. Analgesic options have been reviewed. Anticipate normal spontaneous vaginal delivery. Time with Patient: Less than 30
[2020-07-20] MEDS ORDERED: diphenhydrAMINE 50 MG CAP PO PRN (13:13)
[2020-07-20] MEDS ORDERED: HYDROCORTISONE 2.5% RECTAL CREAM 30 GM TUBE RECTAL PRN (13:13)
[2020-07-20] MEDS ORDERED: ZOLPIDEM 5 MG TAB PO PRN (13:13)
[2020-07-20] MEDS ORDERED: diphenhydrAMINE 25 MG CAP PO PRN (13:13)
[2020-07-20] MEDS ORDERED: LANOLIN CREAM 5 GM TUBE TOPICAL PRN (13:13)
[2020-07-20] MEDS ORDERED: diphenhydrAMINE 50 MG/ML 1 ML VIAL IVP PRN ×2 (13:13)
[2020-07-20] MEDS ORDERED: BENZOCAINE/MENTHOL SPRAY 1 GM/SPRAY AEROSOL TOPICAL PRN (13:13)
[2020-07-20] MEDS ORDERED: SIMETHICONE 80 MG CHEWABLE PO PRN (13:13)
[2020-07-20] MEDS ORDERED: ACETAMINOPHEN TAB 325 MG TAB PO PRN (13:13)
--- NOTE | 2020-07-20 13:13 | P.PROBDLV ---
Vaginal Delivery Note - . Vaginal Delivery Note: This is a 30-year-old white female 3 para 2001 EDC 07/27/2020 at 39 weeks gestation. Patient presented for induction with favorable cervix. Fetus is been active throughout the . Blood type O positive, rubella status immune. [place] strep cultures negative. Please see my dictated history and physical for full details. Artificial amniorrhexis revealed clear fluid. Oxytocin was started and titrated per hospital protocol. Epidural was offered but declined. Stadol was given 1. Patient progressed well through the first stage of labor and became completely dilated at 1250 hrs. and began the second stage of labor at that time. The perineal body was prepped and draped in usual sterile fashion. The infant's head delivered occiput anterior and she restituted accordingly. There was no nuchal cord noted. The right or anterior shoulder was delivered easily from underneath the pubic symphysis at which time the oropharynx, nasopharynx, and external nares were bulb suctioned on the perineal body. Patient was officially delivered of a liveborn female at 1253 hrs. The umbilical cord was doubly clamped and ligated, was handed to waiting nurses for evaluation where scores of 9 and 10 at one and 5 minutes respectively were given. Infant weighed 3455 g or 7 lbs. 10 oz. Placenta delivered spontaneously, it was inspected and noted to be intact with trivascular cord at 1256 hrs. Uterus is then massaged. Careful inspection of the cervix, vagina, perineum, periurethral, and perirectal areas revealed a very small midline perineal laceration easily repaired in the usual fashion with 3-0 repeat suture. All sponge needle and enhancement counts are correct. Total estimated blood loss 200 mL's. Patient and her family are allowed to begin the bonding experience in the LDR.
[2020-07-20] MEDS: IBUPROFEN 600 MG TAB PO SCH ×2 (13:53→19:53)
[2020-07-20] MEDS: HYDROcodone/APAP 5-325MG 1 EACH TAB PO PRN ×2 (15:47→22:17)
[2020-07-20] MEDS: SENNOSIDES-DOCUSATE SODIUM 1 EACH TAB PO SCH (19:53)
[2020-07-21] MEDS: IBUPROFEN 600 MG TAB PO SCH ×2 (02:49→08:13)
[2020-07-21] MEDS: HYDROcodone/APAP 5-325MG 1 EACH TAB PO PRN (04:08)
[2020-07-21 06:39] LABS: Basophils % (A) 0 %; Eosinophils # (A) 0.4 k/uL (0-0.7); Eosinophils % (A) 5 %; HCT 31.1 % (34.0-46.0); HGB 10.9 gm/dL (11.4-16.0); Lymphocytes % (A) 23 %; MCHC 34.9 g/dL (31.0-37.0); MCV 91.7 fL (80.0-100.0); Mean Platelet Volume 8.7; Monocytes # (A) 0.3 k/uL (0-1.0); Monocytes % (A) 4 %; Neutrophils # (A) 5.8 k/uL (1.3-7.7); Neutrophils % (A) 67 %; Platelet Count 127 k/uL (150-450); RBC 3.39 m/uL (3.80-5.40); RDW 14.7 % (11.5-15.5); WBC 8.7 k/uL (3.8-10.6)
[2020-07-21] MEDS: SENNOSIDES-DOCUSATE SODIUM 1 EACH TAB PO SCH (07:31)
[2020-07-21 07:57] VITALS: BP 110/60; PULSE 83; TEMP 97.8
--- NOTE | 2020-07-21 08:18 | P.DS ---
Providers Date of admission: 07/20/20 05:37 Expected date of discharge: 07/21/20 Attending physician: Litzy Colón Primary care physician: Stated None Hospital Course: This is a 30-year-old white female 3 para 2001 EDC 07/27/2020 at 39 weeks gestation who presented for induction with favorable multiparous cervix. Group B strep culture negative, rubella status immune, blood type O positive, NO KNOWN DRUG ALLERGIES. Please see dictated history and physical for details. Her history significant for polyhydramnios, followed by weekly nonstress testing, all of which have been reactive. Patient delivered spontaneously and vaginally a liveborn female infant with scores of 9 and 10 at one and 5 minutes respectively. Infant weighed 7 lbs. 10 oz. or 3455 g. There was a small first-degree perineal laceration eas luis repaired. Please see dictated delivery note for details. This morning the patient is doing well. She is voiding, ambulating, passing flatus without difficulty. Vital signs are stable and she is afebrile. Fundus is firm and in the midline, symmetric and 18 week size. Extremities are negative for edema. Breast-feeding is going well. Patient is judged to be in very good condition for discharge home. She will follow-up with me in the office in 6 weeks. I have reminded her no intercourse, tampons or douching. She will use [id number] Advil or Aleve, or Motrin as needed for pain. She will call with any fevers shakes or chills, foul smelling or copious lochia, with the passage of large blood clots, with any pain not alleviated by Motrin, or indeed with any concerns. Assessment: Doing well day #1 Patient Condition at Discharge: Good Plan - Discharge Summary Discharge Rx Participant: No New Discharge Prescriptions: No Action Pnv No.95/Ferrous Fum/Folic AC [ Multivitamin Tablet] 1 each PO DAILY metFORMIN HCL 500 mg PO BID Discharge Medication List Pnv No.95/Ferrous Fum/Folic AC [ Multivitamin Tablet] 1 each PO DAILY 07/05/20 [History] metFORMIN HCL 500 mg PO BID 07/20/20 [History] Follow up Appointment(s)/Referral(s): Litzy Colón MD [STAFF PHYSICIAN] - 6 Weeks Discharge Disposition: HOME SELF-CARE
[2020-07-21 09:21] VITALS: RESP 14
== END 2020-07-21 13:55 | disposition home or self-care (01) | DRG 807 ==
LOC: 4FBP 05:37
PROVIDERS: ADMIT Obstetrics & Gynecology; ATTEND Obstetrics & Gynecology
PROC: 10E0XZZ Delivery of Products of Conception, External Approach (ICD-10-PCS; principal; 2020-07-20)
PROC: 10907ZC Drainage of Amniotic Fluid, Therapeutic from Products of Conception, Via Natural or Artificial Opening (ICD-10-PCS; principal; 2020-07-20)
PROC: 0HQ9XZZ Repair Perineum Skin, External Approach (ICD-10-PCS; principal; 2020-07-20)
PROC: 3E033VJ Introduction of Other Hormone into Peripheral Vein, Percutaneous Approach (ICD-10-PCS; principal; 2020-07-20)
DX: O70.0 First degree perineal laceration during delivery (principal); Z37.0 Single live birth; O40.3XX0 Polyhydramnios, third trimester, not applicable or unspecified; E28.2 Polycystic ovarian syndrome; O99.344 Other mental disorders complicating childbirth; F31.9 Bipolar disorder, unspecified; O99.52 Diseases of the respiratory system complicating childbirth; J45.990 Exercise induced bronchospasm; F41.9 Anxiety disorder, unspecified; O99.62 Diseases of the digestive system complicating childbirth; K58.9 Irritable bowel syndrome, unspecified; Z3A.39 39 weeks gestation of pregnancy; Z79.84 Long term (current) use of oral hypoglycemic drugs; Z79.899 Other long term (current) drug therapy; Z90.49 Acquired absence of other specified parts of digestive tract; Z87.19 Personal history of other diseases of the digestive system; Z90.89 Acquired absence of other organs; Z98.890 Other specified postprocedural states; Z82.49 Family history of ischemic heart disease and other diseases of the circulatory system; Z80.7 Family history of other malignant neoplasms of lymphoid, hematopoietic and related tissues; Z84.2 Family history of other diseases of the genitourinary system; Z82.69 Family history of other diseases of the musculoskeletal system and connective tissue; Z83.49 Family history of other endocrine, nutritional and metabolic diseases
CPT/HCPCS: 85025; 86850; 86900; 86901

== ENCOUNTER → 2021-01-09 | Outpatient (CLI) | payer BC, OTHER ==
[2021-01-09 13:35] VITALS: BP 138/76; PULSE 76; TEMP 98.8; BMI 38.6
--- NOTE | 2021-01-09 13:43 | P.HPBAR ---
Bariatric H&P - History & Physicial H&P Date: 01/09/21 History & Physicial: Visit/CC: initial clinic visit Patient initial contact: Initial weight: Initial weight in pounds: Height: 5 ft 7.75 in Initial BMI: Last weight: Current weight: 114.305 kg Current weight in pounds: 252.00 Current BMI: 38.6 [place] body weight (based on NIH guidelines): 62.936 kg Excess body weight loss: The patient is a 30 year-old F who presents for Bariatric Assessment. Patient presents today for presurgical consultation. Apparently she had started the process before coated shutdown. Her current BMI is 38. She has seen her family doctor 2 months consecutively currently. She's done her psych evaluation. Past Medical History Past Medical History: No Reported History Additional Past Medical History / Comment(s): EXERCISE INDUCED ASTHMA, IBS, GALLSTONES, INTERMITTENT ABD PAIN, INTERMITTENT BLOOD WITH STOOLS, POLYCYSTIC OVARIAN SYNDROME. History of Any Multi-Drug Resistant Organisms: None Reported Past Surgical History: Cholecystectomy, Ear Surgery, Tonsillectomy Additional Past Surgical History / Comment(s): COLONOSCOPY, WISDOM TEETH REMOVEAL, TUBES GALINDO EARS X2 Past Anesthesia/Blood Transfusion Reactions: No Reported Reaction Past Psychological History: Anxiety, Bipolar, Depression Smoking Status: Never smoker Past Alcohol Use History: None Reported Past Drug Use History: None Reported - Past Family History Father Family Medical History: Hypertension, Prostate Disorder Surgical - Exam Vital Signs Temp Pulse BP 98.8 F 76 138/76 01/09/21 13:33 01/09/21 13:33 01/09/21 13:33 - General well developed, well nourished, no distress - Eyes PERRL - ENT normal pinna - Neck no masses - Respiratory normal expansion - Cardiovascular Rhythm: regular - Abdomen Abdomen: soft, non tender Bariatric Assessment & Plan Plan: Obesity. Patient will follow-up in 8 weeks. All her questions regarding sleeve gastrectomy were answered. Bariatric Checklist Checklist: Plan: Checklist: EGD: 1. Hiatal hernia: 2. H. Pylori: HgbA1c: Vitamin D: Smoking: Never smoker Primary care physician referral: dr manning Psychiatry clearance: Cardiology clearance: Sleep study: Diet journal: VTE risk score: VTE risk level: Rehab needs at discharge:
== END | disposition home or self-care (01) ==
LOC: BARWHC3 12:44
PROVIDERS: ATTEND Surgery
DX: E66.9 Obesity, unspecified (principal)
CPT/HCPCS: 99211

== ENCOUNTER → 2021-06-12 | Outpatient (CLI) | payer BC, OTHER ==
[2021-06-12 15:08] VITALS: BP 125/89; PULSE 85; TEMP 98; BMI 38.9
--- NOTE | 2021-06-19 15:18 | P.HPBAR ---
Bariatric H&P - History & Physicial H&P Date: 06/12/21 History & Physicial: Visit/CC: presurgical visit Patient initial contact: Initial weight: Initial weight in pounds: Height: 5 ft 7.75 in Initial BMI: Last weight: Current weight: 115.212 kg Current weight in pounds: 254.00 Current BMI: 38.9 [place] body weight (based on NIH guidelines): 62.936 kg Excess body weight loss: Patient presents today for The patient is a 31 year-old F who presents for Bariatric Assessment. He prese nts today for presurgical consultation. She is morbidly obese. BMI is 38. Past Medical History Past Medical History: No Reported History Additional Past Medical History / Comment(s): EXERCISE INDUCED ASTHMA, IBS, GALLSTONES, INTERMITTENT ABD PAIN, INTERMITTENT BLOOD WITH STOOLS, POLYCYSTIC OVARIAN SYNDROME. History of Any Multi-Drug Resistant Organisms: None Reported Past Surgical History: Cholecystectomy, Ear Surgery, Tonsillectomy Additional Past Surgical History / Comment(s): COLONOSCOPY, WISDOM TEETH REMOVEAL, TUBES GALINDO EARS X2 Past Anesthesia/Blood Transfusion Reactions: No Reported Reaction Smoking Status: Never smoker - Past Family History Father Family Medical History: Hypertension, Prostate Disorder Surgical - Exam Vital Signs Temp Pulse BP 98 F 85 125/89 06/12/21 15:06 06/12/21 15:06 06/12/21 15:06 - General well developed, well nourished, no distress - Eyes PERRL - ENT normal pinna - Neck no masses - Respiratory normal expansion - Cardiovascular Rhythm: regular - Abdomen Abdomen: soft, non tender Bariatric Assessment & Plan Plan: Morbid obesity. Patient is an excellent understanding of sleeve gastric. She is aware the risks and benefits of procedure. He went over complications which is gastric staple line bleeding, scarring and disruption. Patient will be scheduled for sleeve gastrectomy once her insurance authorization requirements have been met. Bariatric Checklist Checklist: Plan: Checklist: EGD: 1. Hiatal hernia: 2. H. Pylori: HgbA1c: Vitamin D: Smoking: Never smoker Primary care physician referral: dr manning Psychiatry clearance: Cardiology clearance: Sleep study: Diet journal: VTE risk score: VTE risk level: Rehab needs at discharge:
== END | disposition home or self-care (01) ==
LOC: BARWHC3 13:00
PROVIDERS: ATTEND Surgery
DX: E66.01 Morbid (severe) obesity due to excess calories (principal); Z68.38 Body mass index [BMI] 38.0-38.9, adult
CPT/HCPCS: 99211

== ENCOUNTER → 2021-06-19 | Outpatient (CLI) | payer BC, OTHER ==
[2021-06-19 11:23] VITALS: BMI 39.7
== END | disposition home or self-care (01) ==
LOC: BARWHC3 08:59
PROVIDERS: ATTEND Surgery
DX: E66.01 Morbid (severe) obesity due to excess calories (principal); Z71.3 Dietary counseling and surveillance
CPT/HCPCS: 97804

== ENCOUNTER → 2021-06-19 | Outpatient (CLI) | payer BC, OTHER ==
[2021-06-19 18:29] LABS: Basophils # (A) 0.02 X 10*3/uL (0.00-0.10); Basophils % (A) 0.4 %; Eosinophils # (A) 0.23 X 10*3/uL (0.04-0.35); Eosinophils % (A) 4.5 %; HCT 42.9 % (37.2-46.3); HGB 13.8 g/dL (12.0-15.0); Immature Grans, Automated 0.2 %; Lymphocytes # (A) 1.47 X 10*3/uL (0.90-5.00); Lymphocytes % (A) 28.8 %; MCHC 32.2 g/dL (32.0-37.0); MCV 93.3 fL (80.0-97.0); Mean Platelet Volume 10.6 fL (9.5-12.2); Monocytes # (A) 0.43 X 10*3/uL (0.20-1.00); Monocytes % (A) 8.4 %; NRBC Per 100 WBC 0 /100 WBCS (0.0-0.0); Neutrophils # (A) 2.95 X 10*3/uL (1.80-7.70); Neutrophils % (A) 57.7 %; Platelet Count 194 X 10*3/uL (140-440); RDW 12.6 % (11.5-14.5); WBC 5.11 X 10*3/uL (4.50-10.00)
[2021-06-19 19:22] LABS: African American GFR (CKD) 107.6 (60.0-200.0); Albumin 4.8 g/dL (3.8-4.9); Albumin/Globulin Ratio 2.59 (1.60-3.17); Anion Gap 15.1 mmol/L (10.00-18.00); BUN/Creat Ratio 10.32 Ratio (12.00-20.00); Blood Urea Nitrogen 8.7 mg/dL (9.0-27.0); Calcium 9.6 mg/dL (8.7-10.3); Carbon Dioxide 23.1 mmol/L (20.0-27.5); Globulin 1.9 g/dL (1.6-3.3); Non-African American GFR(CKD) 92.9 (60.0-200.0); Potassium 4.2 mmol/L (3.5-5.5); Total Bilirubin 0.8 mg/dL (0.30-1.20); Total Protein 6.7 g/dL (6.2-8.2)
== END | disposition home or self-care (01) ==
LOC: LABPAT 10:40
PROVIDERS: ATTEND Surgery
DX: Z01.812 Encounter for preprocedural laboratory examination (principal)
CPT/HCPCS: 36415; 80053; 85025; 93005

== ENCOUNTER 2021-07-31 07:40 | Inpatient (IN) | payer BC, OTHER ==
[~2021-07-31 07:40] MED LIST changes: +DEXAMETHASONE SOD PHOSPHATE 4 MG/ML 1 ML VIAL IV ONE; +ENOXAPARIN 40 MG/0.4 ML SYRINGE SQ PRN; -LACTATED RINGERS 1,000 ML IV SCH; -LIDOCAINE 1% 20 ML VIAL (10MG/ML) FOR IV START INTRADERMA PRN; +ONDANSETRON 4 MG/2 ML VIAL IVP ONE
[2021-07-31] MEDS: LACTATED RINGERS 1,000 ML IV SCH (10:48)
--- NOTE | 2021-07-31 11:12 | P.GSHP ---
History of Present Illness H&P Date: 07/31/21 Chief Complaint: Morbid obesity, BMI 40 This is a 31-year-old female who presents today for laparoscopic sleeve gastric. Patient is morbidly obese. Her BMI is 40. Patient is aware the risks of surgery including gastric staple line disruption, bleeding perforation and scar ring Past Medical History Past Medical History: Asthma, GERD/Reflux Additional Past Medical History / Comment(s): EXERCISE INDUCED ASTHMA, IBS, POLYCYSTIC OVARIAN SYNDROME. History of Any Multi-Drug Resistant Organisms: None Reported Past Surgical History: Cholecystectomy, Ear Surgery, Tonsillectomy Additional Past Surgical History / Comment(s): COLONOSCOPY/EGD, WISDOM TEETH REMOVEAL, TUBES GALINDO EARS X2 Past Anesthesia/Blood Transfusion Reactions: Motion Sickness Smoking Status: Never smoker - Past Family History Father Family Medical History: Hypertension, Prostate Disorder Mother Family Medical History: No Reported History Medications and Allergies Home Medications Medication Instructions Recorded Confirmed Type metFORMIN HCL 500 mg PO BID 07/20/20 07/26/21 History [place]-3 Fatty Acids/Fish Oil [Fish 1 each PO DAILY 01/09/21 07/26/21 History Oil 1,000 mg Softgel] Cholecalciferol [Vitamin D3 (125 250 mcg PO DAILY 07/26/21 07/26/21 History Mcg = 5000 Iu)] Ferrous Sulfate [Feosol] 325 mg PO DAILY 07/26/21 07/26/21 History Multivitamins, Thera [Multivitamin 1 tab PO DAILY 07/26/21 07/26/21 History (formulary)] levonorgestreL [Mirena] 1 each IY DIRECTED 07/26/21 07/31/21 History Allergies Allergy/AdvReac Type Severity Reaction Status Date / Time No Known Allergies Allergy Verified 07/26/21 16:02 Surgical - Exam Vital Signs Temp Pulse Resp BP Pulse Ox 98.4 F 91 16 132/73 100 07/31/21 10:37 07/31/21 10:37 07/31/21 10:37 07/31/21 10:37 07/31/21 10:37 - General well developed, well nourished, no distress - Eyes PERRL - ENT normal pinna, normal nares - Neck no masses - Respiratory normal expansion - Cardiovascular Rhythm: regular - Abdomen Abdomen: soft, non tender Assessment and Plan Assessment: Morbid obesity. We'll perform laparoscopic sleeve gastrectomy
[2021-07-31] MEDS ORDERED: BUPIVACAINE (PF) 0.25% 30 ML VIAL SQ ONE ×2 (11:29→11:56)
[2021-07-31] MEDS ORDERED: LACTATED RINGERS 1,000 ML IV ONE (12:21)
[2021-07-31] MEDS ORDERED: NALOXONE 0.4 MG/ML 1 ML VIAL IV PRN (12:40)
[2021-07-31] MEDS ORDERED: SIMETHICONE 40 MG/0.6 ML DROPS 2,000 MG/30 ML BOTTLE PO PRN (12:40)
--- NOTE | 2021-07-31 12:40 | P.OP ---
Date of Procedure: 07/31/21 Preoperative Diagnosis: morbid obesity Postoperative Diagnosis: morbid obesity Procedure(s) Performed: laparoscopic sleeve gastrectomy Anesthesia: VERNON Surgeon: Rene Green Estimated Blood Loss (ml): 5 Pathology: other (stomach) Condition: stable Disposition: PACU Description of Procedure: The patient was placed on the operating room table in the supine position. She received general anesthesia and then was placed in dorsal lithotomy position. Her abdomen was prepped and draped in sterile fashion. The skin incision sites were anesthetized 1% local Xylocaine. And then the skin was incised with an 11 blade in the left lateral position. Using a blade less trocar under direct visualization the peritoneal cavity was entered. The abdomen was insufflated and then a 5 mm laparoscope was placed into the peritoneal cavity. A 5 mm trocar was placed in the right epigastric, and right lateral position. A 15 mm trocar was placed in the supra-umbilical position and another 5 mm trocar was placed in the left lateral position. The left lateral lobe of the liver was retracted. The stomach was visualized. The greater curvature of the stomach was then dissected using the Harmonic scissors. The dissection occurred approximately 5 cm from the pylorus to the level of the left nhan. There was no hiatal hernia seen. At this point a 40-Burkinan bougie dilator was placed the oropharynx and passed into the esophagus and into the stomach by the SUPERINTENDENT METERS. The sleeve gastrectomy was performed by using the powered echelon stapler with a seam guard buttress material. Sequential firings of the stapler were performed. The gastric remnant was then brought out through the 15 mm trocar site. The dilator was withdrawn. And a orogastric tube was replaced into the stomach. The stomach was insufflated with 200 mL of methylene blue normal saline. There was no evidence of extravasation. The abdomen was irrigated there is no bleeding seen. The Elliott-Santo device was used to close the 15 mm trocar with 0 Vicryl. Skin was closed with interrupted 3-0 Monocryl sutures once the trochars withdrawn. Dermabond dressing was applied. Patient was sent to recovery in stable condition.
[2021-07-31] MEDS: HYDROmorphone 0.5 MG/0.5 ML SYRINGE IVP PRN ×5 (12:50→13:55)
[2021-07-31] MEDS: ONDANSETRON 4 MG/2 ML VIAL IVP PRN ×2 (12:54→19:27)
[2021-07-31] MEDS: HYDROmorphone 1 MG/ML 1 ML SYRINGE IVP PRN ×3 (15:19→22:40)
[2021-07-31] MEDS: ALBUTEROL NEBULIZED 2.5 MG/3 ML INHALATION SCH ×2 (16:55→21:29)
[2021-07-31] MEDS: KETOROLAC 15 MG/ML 1 ML VIAL IVP SCH ×2 (17:28→22:48)
[2021-07-31] MEDS: METOCLOPRAMIDE 5 MG/ML 2 ML VIAL IVP SCH ×2 (17:28→22:48)
[2021-07-31] MEDS: 0.9% NACL WITH KCL 20 MEQ/L 1,000 ML IV SCH ×2 (19:03→22:07)
[2021-08-01] MEDS: ONDANSETRON 4 MG/2 ML VIAL IVP PRN ×2 (04:30→11:54)
[2021-08-01] MEDS: HYDROmorphone 1 MG/ML 1 ML SYRINGE IVP PRN (04:41)
[2021-08-01] MEDS: 0.9% NACL WITH KCL 20 MEQ/L 1,000 ML IV SCH (04:59)
[2021-08-01] MEDS: METOCLOPRAMIDE 5 MG/ML 2 ML VIAL IVP SCH ×3 (05:50→17:49)
[2021-08-01] MEDS: KETOROLAC 15 MG/ML 1 ML VIAL IVP SCH ×3 (05:50→17:49)
[2021-08-01] MEDS: LACTATED RINGERS 1,000 ML IV SCH (05:53)
[2021-08-01] MEDS: ENOXAPARIN 40 MG/0.4 ML SYRINGE SQ SCH (08:56)
[2021-08-01] MEDS: PANTOPRAZOLE 40 MG/10 ML VIAL IV SCH (08:56)
[2021-08-01] MEDS: ALBUTEROL NEBULIZED 2.5 MG/3 ML INHALATION SCH ×4 (09:05→20:03)
[2021-08-01 09:12] LABS: Basophils # (A) 0.02 X 10*3/uL (0.00-0.10); Basophils % (A) 0.2 %; Eosinophils # (A) 0.03 X 10*3/uL (0.04-0.35); Eosinophils % (A) 0.4 %; HCT 36.4 % (37.2-46.3); HGB 11.8 g/dL (12.0-15.0); Immature Grans, Automated 0.4 %; Lymphocytes % (A) 18.3 %; MCH 30.2 pg (27.0-32.0); MCHC 32.4 g/dL (32.0-37.0); MCV 93.1 fL (80.0-97.0); Mean Platelet Volume 10.4 fL (9.5-12.2); Monocytes # (A) 0.52 X 10*3/uL (0.20-1.00); Monocytes % (A) 6.3 %; NRBC Per 100 WBC 0 /100 WBCS (0.0-0.0); Neutrophils # (A) 6.11 X 10*3/uL (1.80-7.70); Neutrophils % (A) 74.4 %; Platelet Count 211 X 10*3/uL (140-440); RBC 3.91 X 10*6/uL (4.10-5.20); RDW 12.3 % (11.5-14.5); WBC 8.21 X 10*3/uL (4.50-10.00)
[2021-08-01 09:23] LABS: African American GFR (CKD) 141.8 (60.0-200.0); Blood Urea Nitrogen 8.4 mg/dL (9.0-27.0); Calcium 8.3 mg/dL (8.7-10.3); Non-African American GFR(CKD) 122.3 (60.0-200.0); Phosphorus 3.4 mg/dL (2.4-5.1)
[2021-08-01 09:24] LABS: Anion Gap 9.8 mmol/L (10.00-18.00); Carbon Dioxide 21.2 mmol/L (20.0-27.5); Potassium 4.5 mmol/L (3.5-5.5)
[2021-08-01 09:39] LABS: Magnesium 2.1 mg/dL (1.5-2.4)
[2021-08-01] MEDS: 1: THIAMINE 100 MG, FOLIC ACID 1 MG in 0.9% NACL WITH KCL 20 MEQ/L 1,000 ML 2: 0.9% NAC IVPB SCH ×2 (10:09→19:02)
--- NOTE | 2021-08-01 12:25 | FL ---
EXAMINATION TYPE: FL UGI DATE OF EXAM: 08/01/2021 COMPARISON: None HISTORY: Post gastric sleeve TECHNIQUE: A single contrast UGI study is performed. FINDINGS: Contrast passes from the distal esophagus through the gastric sleeve with mild hesitancy. N o extravasation of contrast is evident. Moderate free air is noted during this examination. Overhead radiographs were obtained which are unremarkable. Fluoroscopy time: 45 seconds. Images: 14 IMPRESSIONS: 1. No extravasation post gastric sleeve.
--- NOTE | 2021-08-01 13:04 | P.CONS ---
History of Present Illness - Reason for Consult Consult date: 08/01/21 Medical management - Chief Complaint Laparoscope sleeve gastrectomy. - History of Present Illness Patient is a 31-year-old female with a known history of asthma, GERD and PCOD on metformin, IBS and history of cholecystectomy was admitted to hospital for laparoscopic sleeve gastrectomy surgery. Patient tolerated the procedure well. Currently complaining of nausea. No episodes of vomiting. Patient did have upper GI series today. Otherwise no complaints of chest pain or shortness of breath.. No headache or dizziness or lightheadedness. No fever no chills. Laboratory showed WC 8.2 hemoglobin 11.8 and platelets 211 Sodium 136 potassium 4.5 chloride 105 bicarb is 21.2 BUN 8.4 and creatinine level 0.6. Magnesium 2.1. Review of Systems Constitutional: Patient denies any fever or chills . No generalized weakness or weight loss. Abdomen: Patient patient does have nausea vomiting. Abdominal discomfort in the upper abdomen. No diarrhea Cardiovascular: Patient denies any chest pain or short of breath no palpitations. Respiratory: patient denied any cough is from production. No shortness of breath Neurologic: Patient denied any numbness or tingling headache. Musculoskeletal: Patient denies any complaints of joint swelling or deformity. Skin: Negative Psychiatric: Negative Endocrine: No heat or cold intolerance. No recent weight gain. Genitourinary: No dysuria or hematuria. All other 14 point ROS negative except the above Past Medical History Past Medical History: Asthma, GERD/Reflux Additional Past Medical History / Comment(s): EXERCISE INDUCED ASTHMA, IBS, POLYCYSTIC OVARIAN SYNDROME. History of Any Multi-Drug Resistant Organisms: None Reported Past Surgical History: Cholecystectomy, Ear Surgery, Tonsillectomy Additional Past Surgical History / Comment(s): COLONOSCOPY/EGD, WISDOM TEETH REMOVEAL, TUBES GALINDO EARS X2 Past Anesthesia/Blood Transfusion Reactions: Motion Sickness Smoking Status: Never smoker - Past Family History Father Family Medical History: Hypertension, Prostate Disorder Mother Family Medical History: No Reported History Medications and Allergies Home Medications Medication Instructions Recorded Confirmed Type metFORMIN HCL 500 mg PO BID 07/20/20 07/26/21 History [place]-3 Fatty Acids/Fish Oil [Fish 1 each PO DAILY 01/09/21 07/26/21 History Oil 1,000 mg Softgel] Cholecalciferol [Vitamin D3 (125 250 mcg PO DAILY 07/26/21 07/26/21 History Mcg = 5000 Iu)] Ferrous Sulfate [Feosol] 325 mg PO DAILY 07/26/21 07/26/21 History Multivitamins, Thera [Multivitamin 1 tab PO DAILY 07/26/21 07/26/21 History (formulary)] levonorgestreL [Mirena] 1 each IY DIRECTED 07/26/21 07/31/21 History Allergies Allergy/AdvReac Type Severity Reaction Status Date / Time No Known Allergies Allergy Verified 07/26/21 16:02 Physical Exam Vitals: Vital Signs Temp Pulse Resp BP BP Pulse Ox 08/01/21 07:50 98.3 F 99 19 137/80 94 L 08/01/21 00:58 98 F 96 18 125/82 96 07/31/21 17:18 98.1 F 118 H 19 123/85 97 07/31/21 17:00 118 H 19 07/31/21 14:51 97.4 F L 84 19 128/84 96 07/31/21 13:56 99 16 142/74 94 L 07/31/21 13:39 100 16 139/63 91 L 07/31/21 13:26 65 16 137/63 91 L 07/31/21 13:11 73 16 137/63 94 L 07/31/21 12:56 64 16 135/70 100 07/31/21 12:39 86 14 129/61 98 Intake and Output 07/31/21 08/01/21 08/01/21 22:59 06:59 14:59 Intake Total 0 1650 Output Total 600 Balance -600 1650 Intake: Intake, IV Titration 1650 Amount 0.9% NaCl with KCl 20 Meq 1650 /l 1,000 ml @ 150 mls/hr IV .Q6H40M COUNT INCLUDES THE [facility] Rx#: [id number] Oral 0 Output: Urine 600 Stool 0 Other: # Voids 0 3 # Bowel Movements 0 Weight 112.5 kg PHYSICAL EXAMINATION: Patient is lying in the bed comfortably, no acute distress, awake alert and oriented.. HEENT: Normocephalic. Neck is supple. Pupils reactive. Nostrils clear. Oral cavity is moist. Neck reveals no JVD, carotid bruits, or thyromegaly. CHEST EXAMINATION: Trachea is central. Symmetrical expansion. Lung whyte clear to auscultation and percussion. CARDIAC: Normal S1, S2 with no gallops. No murmurs ABDOMEN: Soft. Bowel sounds diminished. No organomegaly. No abdominal bruits. Extremities: reveal no edema. No clubbing or cyanosis Neurologically awake, alert, oriented x3 with well-coordinated movements. No focal deficits noted Skin: No rash or skin lesions. Psychiatric: Coperative. Nonsuicidal Musculoskeletal: No joint swelling or deformity. Normal range of motion. Results CBC & Chem 7: 08/01/21 03:48 08/01/21 03:48 Labs: Abnormal Lab Results - Last 24 Hours (Table) 08/01/21 08/01/21 Range/Units 03:48 03:48 RBC 3.91 L (4.10-5.20) X 10*6/uL Hgb 11.8 L (12.0-15.0) g/dL Hct 36.4 L (37.2-46.3) % Eosinophils # 0.03 L (0.04-0.35) X 10*3/uL Anion Gap 9.80 L (10.00-18.00) mmol/L BUN 8.4 L (9.0-27.0) mg/dL Calcium 8.3 L (8.7-10.3) mg/dL Assessment and Plan Assessment: Status post laparoscopic sleeve gastrectomy. Postoperative day 1 Normocytic anemia with hemoglobin level 11.8 GERD Asthma not in exacerbation Polycystic ovarian syndrome currently on metformin. Morbid obesity BMI 40.0 DVT prophylaxis patient is on Lovenox 40 mg subcu daily. Plan: Patient will be continued on IV hydration and symptomatic management for nausea and vomiting. Will follow-up upper GI series for any obstruction. Albuterol inhalation as n eeded for shortness of breath and continue with PPI and other home medications. Thank you for your consult.
[2021-08-01 13:21] LABS: Glucose,Whole Blood 82 mg/dL (75-99)
[2021-08-01] MEDS: INSULIN ASPART (NovoLOG) 100 UNIT/ML VIAL SQ SCH ×3 (13:24→21:36)
[2021-08-01 13:36] VITALS: BMI 40.0
--- NOTE | 2021-08-01 14:32 | P.PN ---
Subjective Progress Note Date: 08/01/21 CHIEF COMPLAINT: Morbid obesity HISTORY OF PRESENT ILLNESS: Postoperative day #1 status post laparoscopic sleeve gastrectomy. Upper GI shows mild hesitancy no extravasation of contrast. Patient reports her pain is controlled. She does complain of some gas pains. She denies any flatus. She did have some nausea after the Dilaudid. She has been up and ambulating. She had some mild tachycardia this morning heart rate of 118 and 96. Afebrile. WBC is 8.2 HGB 11.8 platelets 211 creatinine 0.6 K 4.5 Mg 2.1 PHYSICAL EXAM: VITAL SIGNS: Reviewed. GENERAL: Well-developed in no acute distress. HEENT: No sclera icterus. Extraocular movements grossly intact. Moist buccal mucosa. Head is atraumatic, normocephalic. ABDOMEN: Soft. Nondistended. Nontender. Incision sites clean dry and intact NEUROLOGIC: Alert and oriented. Cranial nerves II through XII grossly intact. ASSESSMENT: 1. Morbid obesity status post laparoscopic sleeve gastrectomy PLAN: -Start bariatric clear liquid diet -Continue IV fluids -Continue pain medication as needed -Encourage patient to ambulate -Encourage patient to use incentive spirometer -Continue Mylicon drops as needed -Anticipate discharge home tomorrow -DVT prophylaxis Lovenox and GI prophylaxis Protonix Physician Van Loader note has been reviewed by physician. Signing provider agrees with the documented findings, assessment, and plan of care. Objective - Vital Signs Vital signs: Vital Signs Temp 98.3 F 08/01/21 07:50 Pulse 99 08/01/21 07:50 Resp 19 08/01/21 07:50 BP 137/80 08/01/21 07:50 Pulse Ox 94 L 08/01/21 07:50 Intake & Output 07/31/21 08/01/21 08/01/21 18:59 06:59 18:59 Intake Total 1900 1650 Output Total 10 600 Balance 1890 1050 Weight 112.5 kg 112.5 kg Intake: IV 1900 Intake, IV Titration 1650 Amount 0.9% NaCl with KCl 20 Meq 1650 /l 1,000 ml @ 150 mls/hr IV .Q6H40M [facility] Rx#: [id number] Oral 0 Output: Urine 0 600 Stool 0 Estimated Blood Loss 10 Other: # Voids 0 3 # Bowel Movements 0 - Labs CBC & Chem 7: 08/01/21 03:48 08/01/21 03:48 Labs: Abnormal Lab Results - Last 24 Hours (Table) 08/01/21 08/01/21 Range/Units 03:48 03:48 RBC 3.91 L (4.10-5.20) X 10*6/uL Hgb 11.8 L (12.0-15.0) g/dL Hct 36.4 L (37.2-46.3) % Eosinophils # 0.03 L (0.04-0.35) X 10*3/uL Anion Gap 9.80 L (10.00-18.00) mmol/L BUN 8.4 L (9.0-27.0) mg/dL Calcium 8.3 L (8.7-10.3) mg/dL
[2021-08-01 16:43] LABS: Glucose,Whole Blood 74 mg/dL (75-99)
[2021-08-01 21:20] LABS: Glucose,Whole Blood 83 mg/dL (75-99)
[2021-08-02] MEDS: METOCLOPRAMIDE 5 MG/ML 2 ML VIAL IVP SCH ×3 (00:21→12:29)
[2021-08-02] MEDS: KETOROLAC 15 MG/ML 1 ML VIAL IVP SCH ×3 (00:21→12:29)
[2021-08-02] MEDS: LACTATED RINGERS 1,000 ML IV SCH (04:42)
[2021-08-02 06:58] LABS: Glucose,Whole Blood 81 mg/dL (75-99)
[2021-08-02] MEDS: INSULIN ASPART (NovoLOG) 100 UNIT/ML VIAL SQ SCH ×2 (08:30→12:30)
[2021-08-02 08:32] VITALS: BP 126/71; PULSE 89; RESP 18; TEMP 98.2
[2021-08-02] MEDS: ALBUTEROL NEBULIZED 2.5 MG/3 ML INHALATION SCH ×2 (08:40→11:44)
[2021-08-02] MEDS: PANTOPRAZOLE 40 MG/10 ML VIAL IV SCH (09:07)
[2021-08-02] MEDS: ENOXAPARIN 40 MG/0.4 ML SYRINGE SQ SCH (09:07)
[2021-08-02] MEDS: 1: THIAMINE 100 MG, FOLIC ACID 1 MG in 0.9% NACL WITH KCL 20 MEQ/L 1,000 ML 2: 0.9% NAC IVPB SCH (10:04)
--- NOTE | 2021-08-02 11:39 | P.DS ---
Providers Date of admission: 07/31/21 10:15 Expected date of discharge: 08/02/21 Attending physician: Rene Green Consults: 07/31/21 12:40 Consult Physician Routine Consulting Provider: Kt John Consult Reason/Comments: medical management Do you want consulting provider notified?: Yes Primary care physician: [facility] Course: Discharge diagnosis 1. Morbid obesity status post laparoscopic sleeve gastrectomy Hospital course This is a 31-year-old female with a known history of morbid obesity. She is status post laparoscopic sleeve gastrectomy. She tolerated surgery well. Her upper GI shows mild hesitancy and no extravasation of contrast. Her pain is controlled. She is tolerating diet. She has been up and ambulating. She is urinating without difficulty. She is afebrile. She is stable for discharge. Please refer to chart for any further details. Physician Mechatronics Technologist note has been reviewed by physician. Signing provider agrees with the documented findings, assessment, and plan of care. Patient Condition at Discharge: Stable Plan - Discharge Summary Discharge Rx Participant: Yes New Discharge Prescriptions: New traMADol HCL [Ultram] 50 mg PO Q6HR PRN 2 Days #5 tab PRN Reason: Pain bisacodyL [Dulcolax] 5 mg PO DAILY PRN #10 tab PRN Reason: Constipation Simethicone 40 mg/0.6 ml Drops [Mylicon Drops] 40 mg PO PCHS PRN #30 ml PRN Reason: Gas Omeprazole [PriLOSEC] 40 mg PO DAILY #30 cap Ondansetron Odt [Zofran Odt] 4 mg PO Q8HR PRN #9 tab PRN Reason: Nausea Acetaminophen Tab [Tylenol] 1,000 mg PO Q6HR PRN #30 tablet PRN Reason: Pain Continue levonorgestreL [Mirena] 1 each IY DIRECTED Discontinued [place]-3 Fatty Acids/Fish Oil [Fish Oil 1,000 mg Softgel] 1 each PO DAILY Ferrous Sulfate [Feosol] 325 mg PO DAILY metFORMIN HCL 500 mg PO BID Multivitamins, Thera [Multivitamin (formulary)] 1 tab PO DAILY Cholecalciferol [Vitamin D3 (125 Mcg = 5000 Iu)] 250 mcg PO DAILY Discharge Medication List levonorgestreL [Mirena] 1 each IY DIRECTED 07/26/21 [History] Acetaminophen Tab [Tylenol] 1,000 mg PO Q6HR PRN #30 tablet 08/02/21 [Rx] Omeprazole [PriLOSEC] 40 mg PO DAILY #30 cap 08/02/21 [Rx] Ondansetron Odt [Zofran Odt] 4 mg PO Q8HR PRN #9 tab 08/02/21 [Rx] Simethicone 40 mg/0.6 ml Drops [Mylicon Drops] 40 mg PO PCHS PRN #30 ml 08/02/21 [Rx] bisacodyL [Dulcolax] 5 mg PO DAILY PRN #10 tab 08/02/21 [Rx] traMADol HCL [Ultram] 50 mg PO Q6HR PRN 2 Days #5 tab 08/02/21 [Rx] [place] [facility]ment[facility]Ref[place] 08/04/21 10:30 am Mckayla Estrada PAC [Primary Care Provider] - 1 Week Patient Instructions/Handouts: Nutrition after Bariatric Surgery (DC), Laparoscopic Sleeve Gastrectomy (DC) Activity/Diet/Wound Care/Special Instructions: No driving while taking ultram No lifting over 10 pounds You may shower. No soaking or tub baths for 2 weeks Very light activity until you are reevaluated at your follow up appointment with your surgeon No straws or carbonated beverages Hold on taking all vitamins until seen by surgeon Discharge Disposition: HOME SELF-CARE
== END 2021-08-02 12:36 | disposition home or self-care (01) | DRG 621 ==
LOC: 2ORMAIN 10:15 → 4SSUR 13:07
PROVIDERS: ADMIT Surgery; ATTEND Surgery
PROC: 0DB64Z3 Excision of Stomach, Percutaneous Endoscopic Approach, Vertical (ICD-10-PCS; principal; 2021-07-31 11:40)
DX: E66.01 Morbid (severe) obesity due to excess calories (principal); Z68.41 Body mass index [BMI] 40.0-44.9, adult; D64.9 Anemia, unspecified; J45.909 Unspecified asthma, uncomplicated; E28.2 Polycystic ovarian syndrome; K21.9 Gastro-esophageal reflux disease without esophagitis; K58.9 Irritable bowel syndrome, unspecified; Z79.84 Long term (current) use of oral hypoglycemic drugs; Z79.3 Long term (current) use of hormonal contraceptives; Z79.899 Other long term (current) drug therapy; Z90.49 Acquired absence of other specified parts of digestive tract; Z90.89 Acquired absence of other organs; Z86.69 Personal history of other diseases of the nervous system and sense organs; Z98.818 Other dental procedure status; Z98.890 Other specified postprocedural states; Z71.3 Dietary counseling and surveillance; Z82.49 Family history of ischemic heart disease and other diseases of the circulatory system; Z84.2 Family history of other diseases of the genitourinary system
CPT/HCPCS: 74240; 80051; 81025; 82310; 82565; 83735; 84100; 84520; 85025; 88307

== ENCOUNTER → 2021-08-07 | Outpatient (CLI) | payer BC, OTHER ==
[2021-08-07 15:10] VITALS: BP 127/85; PULSE 102; RESP 16; TEMP 97.6; BMI 35.8
--- NOTE | 2021-08-07 15:48 | P.HPBAR ---
Bariatric H&P - History & Physicial H&P Date: 08/07/21 History & Physicial: Visit/CC: 1 week sleeve f/u Patient initial contact: Initial weight: Initial weight in pounds: Height: 5 ft 7.75 in Initial BMI: Last weight: Current weight: 106.141 kg Current weight in pounds: 234.00 Current BMI: 35.8 [place] body weight (based on NIH guidelines): 62.936 kg Excess body weight loss: The patient is a 31 year-old F who presents for Bariatric Assessment. She presents today for bariatric follow-up. She is status post sleeve gastrectomy. She's doing quite well. Past Medical History Past Medical History: Asthma, GERD/Reflux Additional Past Medical History / Comment(s): EXERCISE INDUCED ASTHMA, IBS, POLYCYSTIC OVARIAN SYNDROME. History of Any Multi-Drug Resistant Organisms: None Reported Past Surgical History: Bariatric Surgery, Cholecystectomy, Ear Surgery, Tonsillectomy Additional Past Surgical History / Comment(s): COLONOSCOPY/EGD, WISDOM TEETH REMOVEAL, TUBES GALINDO EARS X2. gastric sleeve 07/31/2021 Past Anesthesia/Blood Transfusion Reactions: Motion Sickness Past Psychological History: No Psychological Hx Reported Additional Psychological History / Comment(s): denies Smoking Status: Never smoker Past Alcohol Use History: None Reported Past Drug Use History: None Reported - Past Family History Father Family Medical History: Hypertension, Prostate Disorder Mother Family Medical History: No Reported History Surgical - Exam Vital Signs Temp Pulse Resp BP 97.6 F 102 H 16 127/85 08/07/21 15:08 08/07/21 15:08 08/07/21 15:08 08/07/21 15:08 - General well developed, well nourished, no distress - Eyes PERRL - Abdomen Incisions are clean dry tach Abdomen: soft, non tender Bariatric Assessment & Plan Plan: Status post sleeve gastrectomy. Patient is doing quite well. She'll follow-up in 2 weeks Bariatric Checklist Checklist: Plan: Checklist: EGD: 1. Hiatal hernia: 2. H. Pylori: HgbA1c: Vitamin D: Smoking: Never smoker Primary care physician referral: dr manning Psychiatry clearance: Cardiology clearance: Sleep study: Diet journal: VTE risk score: VTE risk level: Rehab needs at discharge:
== END | disposition home or self-care (01) ==
LOC: BARWHC3 14:52
PROVIDERS: ATTEND Surgery
DX: Z98.84 Bariatric surgery status (principal)
CPT/HCPCS: 99211

== ENCOUNTER → 2021-10-02 | Outpatient (CLI) | payer BC, OTHER ==
[2021-10-02 14:27] VITALS: BP 118/79; PULSE 73; RESP 12; TEMP 97.6; BMI 34.7
--- NOTE | 2021-10-02 15:05 | P.HPBAR ---
Bariatric H&P - History & Physicial H&P Date: 10/02/21 History & Physicial: Visit/CC: follow up sleeve Patient initial contact: Initial weight: Initial weight in pounds: Height: 5 ft 7 in Initial BMI: Last weight: Current weight: 100.698 kg Current weight in pounds: 222.00 Current BMI: 34.7 [place] body weight (based on NIH guidelines): 61.235 kg Excess body weight loss: The patient is a 31 year-old F who presents for Bariatric Assessment. He presents today for bariatric follow-up. She second with GERD. Her current weight is 200 pounds. A previously placed 234 pounds Past Medical History Past Medical History: Asthma, GERD/Reflux Additional Past Medical History / Comment(s): EXERCISE INDUCED ASTHMA, IBS, POLYCYSTIC OVARIAN SYNDROME. History of Any Multi-Drug Resistant Organisms: None Reported Past Surgical History: Bariatric Surgery, Cholecystectomy, Ear Surgery, Tonsillectomy Additional Past Surgical History / Comment(s): COLONOSCOPY/EGD, WISDOM TEETH REMOVEAL, TUBES GALINDO EARS X2. gastric sleeve 07/31/2021 Past Anesthesia/Blood Transfusion Reactions: Motion Sickness Past Psychological History: No Psychological Hx Reported Additional Psychological History / Comment(s): denies Smoking Status: Never smoker Past Alcohol Use History: None Reported Past Drug Use History: None Reported - Past Family History Father Family Medical History: Hypertension, Prostate Disorder Mother Family Medical History: No Reported History Surgical - Exam Vital Signs Temp Pulse Resp BP 97.6 F 73 12 118/79 10/02/21 14:23 10/02/21 14:23 10/02/21 14:23 10/02/21 14:23 - General well developed, well nourished, no distress - Eyes PERRL - ENT normal pinna - Neck no masses - Cardiovascular Rhythm: regular - Abdomen Abdomen: soft, non tender Bariatric Assessment & Plan Plan: Status post gastric sleeve. Patient's GERD is minimal and will be observed. She'll follow-up in 4 weeks. Bariatric Checklist Checklist: Plan: Checklist: EGD: 1. Hiatal hernia: 2. H. Pylori: HgbA1c: Vitamin D: Smoking: Never smoker Primary care physician referral: dr manning Psychiatry clearance: Cardiology clearance: Sleep study: Diet journal: VTE risk score: VTE risk level: Rehab needs at discharge:
== END | disposition home or self-care (01) ==
LOC: BARWHC3 13:45
PROVIDERS: ATTEND Surgery
DX: Z48.815 Encounter for surgical aftercare following surgery on the digestive system (principal)
CPT/HCPCS: 97803; 99211

== ENCOUNTER → 2021-11-20 | Outpatient (CLI) | payer BC, OTHER ==
[2021-11-20 13:18] VITALS: BP 127/86; PULSE 77; TEMP 98.2; BMI 31.6
--- NOTE | 2021-11-20 15:34 | P.HPBAR ---
Bariatric H&P - History & Physicial H&P Date: 11/20/21 History & Physicial: Visit/CC: 3 month sleeve f/u Patient initial contact: Initial weight: Initial weight in pounds: Height: 5 ft 7.75 in Initial BMI: Last weight: Current weight: 93.894 kg Current weight in pounds: 207.00 Current BMI: 31.6 [place] body weight (based on NIH guidelines): 62.936 kg Excess body weight loss: The patient is a 31 year-old F who presents for Bariatric Assessment. Patient presents today for sleeve gastrectomy follow-up. She's doing quite well. She lost another 15 pounds since her last visit. She's had some mild GERD. Past Medical History Past Medical History: Asthma, GERD/Reflux Additional Past Medical History / Comment(s): EXERCISE INDUCED ASTHMA, IBS, POLYCYSTIC OVARIAN SYNDROME. History of Any Multi-Drug Resistant Organisms: None Reported Past Surgical History: Bariatric Surgery, Cholecystectomy, Ear Surgery, Tonsillectomy Additional Past Surgical History / Comment(s): COLONOSCOPY/EGD, WISDOM TEETH REMOVEAL, TUBES GALINDO EARS X2. gastric sleeve 07/31/2021 Past Anesthesia/Blood Transfusion Reactions: Motion Sickness Past Psychological History: No Psychological Hx Reported Additional Psychological History / Comment(s): denies Smoking Status: Never smoker Past Alcohol Use History: None Reported Past Drug Use History: None Reported - Past Family History Father Family Medical History: Hypertension, Prostate Disorder Mother Family Medical History: No Reported History Surgical - Exam Vital Signs Temp Pulse BP 98.2 F 77 127/86 11/20/21 13:14 11/20/21 13:14 11/20/21 13:14 - General well developed, well nourished, no distress - Eyes PERRL - ENT normal pinna, normal nares - Neck no masses - Respiratory normal expansion - Cardiovascular Rhythm: regular - Abdomen Abdomen: soft, non tender Bariatric Assessment & Plan Plan: Patient's a well. Her GERD is minimal will be observed. She'll follow-up in 4 weeks. Bariatric Checklist Checklist: Plan: Checklist: EGD: 1. Hiatal hernia: 2. H. Pylori: HgbA1c: Vitamin D: Smoking: Never smoker Primary care physician referral: dr manning Psychiatry clearance: Cardiology clearance: Sleep study: Diet journal: VTE risk score: VTE risk level: Rehab needs at discharge:
== END | disposition home or self-care (01) ==
LOC: BARWHC3 12:54
PROVIDERS: ATTEND Surgery
DX: K21.9 Gastro-esophageal reflux disease without esophagitis (principal)
CPT/HCPCS: 99211

== ENCOUNTER → 2022-01-04 | Outpatient (CLI) | payer BC, OTHER ==
[2022-01-04 18:53] LABS: HCT 47.2 % (37.2-46.3); MCH 33.2 pg (27.0-32.0); MCHC 33.9 g/dL (32.0-37.0); MCV 97.9 fL (80.0-97.0); NRBC Per 100 WBC 0 /100 WBCS (0.0-0.0); Platelet Count 141 X 10*3/uL (140-440); RBC 4.82 X 10*6/uL (4.10-5.20); RDW 12.9 % (11.5-14.5); WBC 6.11 X 10*3/uL (4.50-10.00)
[2022-01-04 20:57] LABS: African American GFR (CKD) 99.4 (60.0-200.0); Albumin 4.4 g/dL (3.8-4.9); Albumin/Globulin Ratio 1.83 (1.60-3.17); Anion Gap 14.2 mmol/L (10.00-18.00); BUN/Creat Ratio 6.56 Ratio (12.00-20.00); Blood Urea Nitrogen 5.9 mg/dL (9.0-27.0); Calcium 9.5 mg/dL (8.7-10.3); Carbon Dioxide 23.8 mmol/L (20.0-27.5); Globulin 2.4 g/dL (1.6-3.3); Non-African American GFR(CKD) 85.8 (60.0-200.0); Total Bilirubin 0.8 mg/dL (0.30-1.20); Total Protein 6.8 g/dL (6.2-8.2)
[2022-01-04 21:34] LABS: % Iron Saturation 40.78 (12.00-45.00)
[2022-01-05 11:24] LABS: Zinc, Serum 116 ug/dL (60-130)
== END | disposition home or self-care (01) ==
LOC: LABWHC1 11:19
PROVIDERS: ATTEND Surgery
DX: E66.01 Morbid (severe) obesity due to excess calories (principal); D50.8 Other iron deficiency anemias; E55.9 Vitamin D deficiency, unspecified; T56.894A Toxic effect of other metals, undetermined, initial encounter; K90.9 Intestinal malabsorption, unspecified
CPT/HCPCS: 36415; 80053; 82306; 82607; 82728; 82746; 83540; 83550; 83735; 84255; 84425; 84443; 84590; 84630; 85027

== ENCOUNTER → 2023-05-29 | Outpatient (CLI) | payer BC, OTHER ==
--- NOTE | 2023-05-29 12:42 | US ---
EXAMINATION TYPE: US abdomen limited DATE OF EXAM: 05/29/2023 COMPARISON: NONE CLINICAL INDICATION: Female, 33 years old with history of R74.8 ELEVATED LIVER ENZYMES; elevated labs , h/o bariatric surgery 2 years ago, cholecystectomy TECHNIQUE: Multiple sonographic images of the right upper quadrant are obtained. FINDINGS: EXAM MEASUREMENTS: Liver Length: 16.2 cm Gallbladder Wall: Surgically absent CBD: 0.4 cm Right Kidney: 10.3 x 3.6 x 10.3 cm Pancreas: wnl Liver: Mild increased echogenicity of the liver parenchyma is compatible with mild fatty liver infil tration. Gallbladder: Surgically absent Evidence for sonographic Parnell's sign: no CBD: wnl Right Kidney: wnl IMPRESSION: No acute findings. 2. Prior cholecystectomy. 3. Hepatic steatosis.
== END | disposition home or self-care (01) ==
LOC: RADUSWWP 06:54
PROVIDERS: ATTEND Pediatrics
DX: K76.0 Fatty (change of) liver, not elsewhere classified (principal); R74.8 Abnormal levels of other serum enzymes; R79.9 Abnormal finding of blood chemistry, unspecified; Z90.49 Acquired absence of other specified parts of digestive tract; Z98.84 Bariatric surgery status
CPT/HCPCS: 76705

== ENCOUNTER → 2024-07-28 | Outpatient (CLI) | payer BC ==
[2024-07-28 15:07] LABS: Reticulocyte % 1.13 % (0.10-1.80)
[2024-07-28 15:47] LABS: % Iron Saturation 38.66 (12.00-45.00); ALT 54 U/L (8-44); AST 113 U/L (13-35); Albumin 4.2 g/dL (3.8-4.9); Albumin/Globulin Ratio 1.83 Ratio (1.60-3.17); Alkaline Phosphatase 90 U/L (41-126); Blood Urea Nitrogen 6.6 mg/dL (9.0-27.0); Calcium 9.4 mg/dL (8.7-10.3); Chloride 104 mmol/L (96-109); Chol/HDL Ratio 2.58 Ratio; Globulin 2.3 g/dL (1.6-3.3); Glucose 89 mg/dL (70-110); Iron 150 UG/DL (50-170); LDL Cholesterol,Calculated 81.6 mg/dL (0.0-131.0); Potassium 3.8 mmol/L (3.5-5.5); Sodium 141 mmol/L (135-145); Total Iron Binding Capacity 388 UG/DL (228-460); Total Protein 6.5 g/dL (6.2-8.2)
[2024-07-28 16:02] LABS: Basophils # (A) 0.03 X 10*3/uL (0.00-0.10); Basophils % (A) 0.7 %; Eosinophils # (A) 0.04 X 10*3/uL (0.04-0.35); Eosinophils % (A) 0.9 %; HGB 14.8 g/dL (12.0-15.0); Lymphocytes # (A) 1.18 X 10*3/uL (0.90-5.00); Lymphocytes % (A) 27.5 %; MCH 33.2 pg (27.0-32.0); MCHC 34.4 g/dL (32.0-37.0); MCV 96.4 FL (80.0-97.0); Mean Platelet Volume 10.7 FL (9.5-12.2); Monocytes # (A) 0.26 X 10*3/uL (0.20-1.00); Monocytes % (A) 6.1 %; NRBC Per 100 WBC 0 X 10*3/uL (0.00-0.01); Neutrophils # (A) 2.76 X 10*3/uL (1.80-7.70); Neutrophils % (A) 64.3 %; Platelet Count 122 X 10*3/uL (140-440); RBC 4.46 X 10*6/uL (4.10-5.20); RDW 13.9 % (11.5-14.5); WBC 4.29 X 10*3/uL (4.50-10.00)
== END | disposition home or self-care (01) ==
LOC: LABWHC1 09:56
PROVIDERS: ATTEND Physician Assistant
DX: D64.9 Anemia, unspecified (principal); E78.1 Pure hyperglyceridemia; E55.9 Vitamin D deficiency, unspecified; R74.8 Abnormal levels of other serum enzymes
CPT/HCPCS: 36415; 80053; 80061; 82306; 82607; 82728; 82746; 83540; 83550; 85025; 85045